=== PATIENT | female | born 1945 | race Caucasian/White ===

== ENCOUNTER 2016-09-25 08:41 | Inpatient (IN) | payer BC, OTHER ==
[~2016-09-25] VITALS: Ht 152.4 cm; Wt 67.3 kg
[~2016-09-25 08:41] MED LIST: ASPI81TA28 PO; ATOR-22 PO; CHOL100010 PO; CINN1CAP2 PO; COEN100C11 PO; ECHINACEA PO; ESTR0.3T PO; MISCTAB78 PO; OMEGCAP2 PO; POTASSIUM PO
[2016-09-25] MEDS ORDERED: METHYLPREDNISOLONE 125 MG VIAL IV STA (08:59)
[2016-09-25] MEDS ORDERED: ALBUT/IPRATROP 3MG/0.5MG NEB 3 ML VIAL INH ONE (09:00)
--- NOTE | 2016-09-25 09:04 | EMERGENCY ROOM VISIT NOTE ---
History Report prepared by Titi: Linda Person Under the Supervision of: Dr. Connor Eubanks M.D. First contact with patient: 08:50 Chief Complaint: SHORTNESS OF BREATH Stated Complaint: SHORT OF BREATH Nursing Triage Summary: Triage note: pt reports she has been short of breath x 1 month and has seen her dr three times. pt reports hx of asthma. pt reports she cough sometimes with clear sputum. History of Present Illness The patient is a 70 year old female who presents to the Emergency Room with complaints of worsening shortness of breath over the past month. She has some chest discomfort when she takes a deep breath. She also complains of a productive cough with clear sputum. The patient was diagnosed with bronchitis and has been on 2 rounds of steroids without resolution of her symptoms. She has not been on any antibiotics. The patient has been using nebulizer treatments about every 4 hours and uses an inhaler in between. She has a history of mild asthma and seldom used her inhaler prior to a month ago. Denies leg swelling or pain or other complaints. No personal history of heart problems or blood clots. She had a flu shot in the past year. Source of History: patient Onset: a month ago Position: other (respiratory) Quality: other (shortness of breath) Timing: worsening Associated Symptoms: + chest pain (with deep breath), + cough (productive with clear sputum) Review of Systems See HPI for pertinent positives & negatives. A total of 10 systems reviewed and were otherwise negative. Past Medical & Surgical Medical Problems: (1) Asthma Old medical records were reviewed. Nurse's notes were reviewed and I agree with. Family History Acute myocardial infarction FH: emphysema Social History Smoking Status: Former Smoker Drug Use: none Marital Status: Occupation Status: retired Current/Historical Medications Scheduled Ascorbic Acid (Vitamin C), 500 MG PO DAILY Aspirin (Aspirin Ec), 81 MG PO Q2D Atorvastatin (Lipitor), 20 MG PO DAILY Calcium Carbonate-Vitamin D (Calcium + D3 600-200 mg-Unit), 2 TAB PO DAILY Cholecalciferol (Vitamin D3), 2 TAB PO DAILY Cinnamon (Cinnamon), 1,000 MG PO DAILY Coenzyme Q10 (Ubidecarenone) (Co Q 10), 100 MG PO DAILY Cyanocobalamin (Vitamin B-12), 1,000 MCG PO DAILY Magnesium Oxide (Magnesium), 250 MG PO DAILY Misc Natural Products (Osteo Bi-Flex Triple Stre), 2 TABS PO DAILY Potassium (Potassium), 99 MG PO DAILY Allergies Coded Allergies: Adhesives (Verified Allergy, Unknown, REDNESS TO SOME BANDAIDS-LATEX FREE BANDAIDS [place], 09/25/16) Erythromycin (Verified Allergy, Unknown, HIVES, 09/25/16) Sulfa Antibiotics (Verified Allergy, Unknown, SWELLING, 09/25/16) Physical Exam Vital Signs Date Time Temp Pulse Resp B/P Pulse Ox O2 Delivery O2 Flow Rate FiO2 09/25/16 13:39 118 20 150/72 93 Nasal Cannula 4.0 09/25/16 12:30 113 22 131/70 93 Nasal Cannula 4.0 09/25/16 12:21 112 09/25/16 10:46 121 24 140/71 93 Room Air 09/25/16 10:05 109 20 155/72 97 Nebulizer 7.0 09/25/16 09:33 112 30 175/86 98 Nebulizer 7.0 09/25/16 09:19 103 20 96 Nasal Cannula 3.0 09/25/16 08:58 109 09/25/16 08:55 93 Nasal Cannula 4.0 09/25/16 08:55 82 Room Air 09/25/16 08:45 36.8 107 26 189/102 88 Room Air Physical Exam General: Moderately ill appearing older female who is tachypneic but speaking full sentences. HEENT: Normal cephalic atraumatic. Pupils are equal round and reactive to light. Extraocular movements are intact. Oropharynx is pink with moist mucous membranes. No swelling of the mouth lips or tongue. Neck: Supple with a midline trachea. No meningeal signs or stiffness, no JVD or bruits. No Stridor. Chest: Wheezing to auscultation bilaterally. No rhonchi. Mild to moderate increased work of breathing. Heart: Tachycardic rate and regular rhythm. Abdomen: Soft nontender, nondistended without rebound guarding or rigidity. Extremities: No cyanosis clubbing or edema. No calf tenderness or assymetry Spine/Back. Non tender to palpation. No CVA tenderness Skin: Good turgor without rashes. Neurologic exam: Cranial nerves two through 12 are intact. Motor and sensation are intact and symmetrical throughout. Medical Decision & Procedures ER Provider Diagnostic Interpretation: Radiology results as stated below per my review and radiologist interpretation: CHEST ONE VIEW PORTABLE CLINICAL HISTORY: CHEST PAIN dyspnea COMPARISON STUDY: 04/27/2016 FINDINGS: The bones soft tissues and hemidiaphragms are normal. The cardiomediastinal silhouette is normal. The lungs are clear. The pulmonary vasculature is normal. IMPRESSION: Negative chest. Electronically signed by: Frank Rocha M.D. 09/25/2016 9:30 AM Dictated Date/Time: 09/25/2016 9:[address] ANGIOGRAPHY OF THE CHEST, PULMONARY EMBOLUS PROTOCOL CLINICAL HISTORY: Cough and shortness of breath. COMPARISON STUDY: Chest radiograph September 25, 2016 and April 27, 2016. TECHNIQUE: Following IV administration of 101 mL of Optiray-320, helical axial images of the chest were obtained utilizing the pulmonary embolus protocol. Maximal intensity projections and sagittal and coronal reformats were viewed on an independent 3D workstation. IV contrast was administered without complication. CT DOSE: 396.53 mGy.cm FINDINGS: No pulmonary emboli are identified. There is no evidence of thoracic aortic dissection. The size of the heart is normal. There is no pericardial effusion. There is a small hiatal hernia. No pneumothorax or pleural effusion is present. There is mild emphysema. There is multifocal mucus plugging or mucoid impaction. There is mild diffuse bronchial wall thickening and mild bronchiectasis. No consolidation is identified. Bony thorax and upper abdomen are unremarkable. IMPRESSION: 1. No pulmonary emboli identified. 2. Multifocal mucus plugging and bronchial wall thickening throughout the lungs. No consolidation. 3. Mild emphysema. Electronically signed by: Wily Finnegan M.D. 09/25/2016 12:05 PM Dictated Date/Time: 09/25/2016 11:59 AM Laboratory Results 09/25/16 09:00 Red Blood Count 4.90, Mean Corpuscular Volume 97.1, Mean Corpuscular Hemoglobin 31.8, Mean Corpuscular Hemoglobin Concent 32.8, Mean Platelet Volume 9.7, Neutrophils (%) (Auto) 49.5, Lymphocytes (%) (Auto) 30.2, Monocytes (%) (Auto) 7.7, Eosinophils (%) (Auto) 11.4, Basophils (%) (Auto) 1.2, Neutrophils # (Auto ) 3.27, Lymphocytes # (Auto) 1.99, Monocytes # (Auto) 0.51, Eosinophils # (Auto ) 0.75, Basophils # (Auto) 0.08 09/25/16 09:00 Test 09/25/16 08:58 09/25/16 09:00 09/25/16 09:07 09/25/16 09:09 Influenza Type A (RT-PCR) Neg for Influ A (NEG) Influenza Type B (RT-PCR) Neg for Influ B (NEG) White Blood Count 6.60 K/uL (4.8-10.8) Red Blood Count 4.90 M/uL (4.2-5.4) Hemoglobin 15.6 g/dL (12.0-16.0) Hematocrit 47.6 % (37-47) Mean Corpuscular Volume 97.1 fL (80-100) Mean Corpuscular Hemoglobin 31.8 pg (25-34) Mean Corpuscular Hemoglobin Concent 32.8 g/dl (32-36) Platelet Count 191 K/uL (130-400) Mean Platelet Volume 9.7 fL (7.4-10.4) Neutrophils (%) (Auto) 49.5 % Lymphocytes (%) (Auto) 30.2 % Monocytes (%) (Auto) 7.7 % Eosinophils (%) (Auto) 11.4 % Basophils (%) (Auto) 1.2 % Neutrophils # (Auto) 3.27 K/uL (1.4-6.5) Lymphocytes # (Auto) 1.99 K/uL (1.2-3.4) Monocytes # (Auto) 0.51 K/uL (0.11-0.59) Eosinophils # (Auto) 0.75 K/uL (0-0.5) Basophils # (Auto) 0.08 K/uL (0-0.2) RDW Standard Deviation 46.8 fL (36.4-46.3) RDW Coefficient of Variation 13.2 % (11.5-14.5) Immature Granulocyte % (Auto) 0.0 % Immature Granulocyte # (Auto) 0.00 K/uL (0.00-0.02) Prothrombin Time 10.4 SECONDS (9.0-12.0) Prothromb Time International Ratio 1.0 (0.9-1.1) Activated Partial Thromboplast Time 28.1 SECONDS (21.0-31.0) Partial Thromboplastin Ratio 1.1 Anion Gap 12.0 mmol/L (3-11) Est Creatinine Clear Calc Drug Dose 56.2 ml/min Estimated GFR () 85.3 Estimated GFR (Non- 73.6 BUN/Creatinine Ratio 10.5 (10-20) Calcium Level 9.5 mg/dl (8.5-10.1) Total Bilirubin 0.7 mg/dl (0.2-1) Direct Bilirubin 0.2 mg/dl (0-0.2) Aspartate Amino Transf (AST/SGOT) 24 U/L (15-37) Alanine Aminotransferase (ALT/SGPT) 33 U/L (12-78) Alkaline Phosphatase 67 U/L (45-117) Total Creatine Kinase 276 U/L (26-192) Creatine Kinase MB 5.8 ng/ml (0.5-3.6) Creatine Kinase MB Ratio 2.1 (0-3.0) Total Protein 7.8 gm/dl (6.4-8.2) Albumin 4.1 gm/dl (3.4-5.0) Lipase 164 U/L (73-393) Bedside D-Dimer > 450 ng/mlFEU (0-450) Bedside Troponin I 0.020 ng/ml (0-0.045) PM-Ocn-C-Type Natriuretic Peptide 263 pg/ml (0-900) Bedside Lactic Acid Venous 1.50 mmol/L (0.90-1.70) Laboratory studies as stated above per my review. Medications Administered Medications (Trade) Dose Ordered Sig/Morgan Route Start Time Stop Time Status Last Admin Dose Admin Methylprednisolone Sodium Succinate (Solu-Medrol IV) 125 mg NOW STAT IV 09/25/16 08:59 09/25/16 09:02 DC 09/25/16 09:31 125 MG Albuterol/ Ipratropium (Duoneb) 12 ml ONE ONCE INH 09/25/16 09:00 09/25/16 09:02 DC 09/25/16 09:19 12 ML ECG Indication: SOB/dyspnea Rate (beats per minute): 102 Rhythm: sinus tachycardia Findings: PAC, no acute ischemic change Comparison ECG Date: 03/21/14 Change: no significant change ED Course 0850: Past medical records reviewed. The patient was evaluated in room B12, and a complete history and physical examination were performed. 0859: Ordered Solu-Medrol 125 mg IV, DuoNeb 12 ml INH. 0915: I reassessed the patient. She was doing much better and was much less tachypneic. She is on nebs at present. 0950: Upon reevaluation, the patient is feeling better. I discussed the results and treatment plan with the patient. She verbalized agreement of the treatment plan. The patient will be evaluated for further management. 1004: I discussed the case with Dr. Malik PIERRE Hospitalist. The patient will be evaluated for further management. 1121: I reassessed the patient. She looks much better and will get a CT scan. 1319: I reassessed the patient and updated her on CT results. Medical Decision Differentials include infection, reactive airway disease, cardiac disease, PE, electrolyte or metabolic abnormality. This patient comes in short of breath. This is been going on for about a month off-and-on. She appears to be fairly tachypneic off of oxygen and her O2 sat is in the low 80s. I put her on oxygen lower talk and he came up into the mid 90s and she feels better she does have wheezes bilaterally. IV access established, EKG was obtained, chest x-ray, multiple blood tests was obtained including blood cultures and lactic acid. Influenza PCR was also ordered. Her EKG does not suggest acute coronary syndrome or significant arrhythmia. She was given a 1 hour-long albuterol/Atrovent neb. She was given Solu-Medrol 125 mg IV and kept on oxygen. She is feeling much better. Her d-dimer was mildly elevated I did do chest CT there is no evidence of PE. There is nothing to suggest acute coronary syndrome. She be will be admitted due to her hypoxemia and her reactive airway disease. Consults Time Called: [phone] Consulting Physician: Dr. Malik PIERRE Hospitalist Returned Call: [phone] I discussed the case with him. The patient will be evaluated for further management. Impression Primary Impression: Hypoxemia Additional Impressions: Shortness of breath Reactive airway disease Scribe Attestation The scribe's documentation has been prepared under my direction and personally reviewed by me in its entirety. I confirm that the note above accurately reflects all work, treatment, procedures, and medical decision making performed by me. Departure Information Dispostion Being Evaluated By Hospitalist Xiang Paniagua M.D. (PCP) Patient Instructions [facility] Problem Qualifiers
[2016-09-25 09:19] VITALS: PULSE 103; O2SAT 96
[2016-09-25] MEDS ORDERED: ASCO500T3 PO (09:21)
[2016-09-25] MEDS ORDERED: CHOL1000 PO (09:21)
[2016-09-25] MEDS ORDERED: ATOR-22 PO (09:21)
[2016-09-25] MEDS ORDERED: POTA99TA PO (09:21)
[2016-09-25] MEDS ORDERED: CYAN10005 PO (09:21)
[2016-09-25] MEDS ORDERED: CALC-388 PO (09:21)
[2016-09-25] MEDS ORDERED: COEN1CAP17 PO (09:21)
[2016-09-25] MEDS ORDERED: MISCTAB88 PO (09:21)
[2016-09-25] MEDS ORDERED: ASPI81TA28 PO (09:21)
[2016-09-25] MEDS ORDERED: MAGN250T22 PO (09:21)
[2016-09-25] MEDS ORDERED: CINN500T PO (09:21)
[2016-09-25 09:24] LABS: BASO % 1.2 %; BASO ABS # 0.08 K/uL (0-0.2); COMPLETE YES; EOS % 11.4 %; HEMATOCRIT 47.6 % (37-47); LYMPH % 30.2 %; LYMPH ABS # 1.99 K/uL (1.2-3.4); MEAN CELL VOLUME 97.1 fL (80-100); MEAN CORPUSCULAR HEMOGLOBIN 31.8 pg (25-34); MEAN CORPUSCULAR HGB CONC 32.8 g/dl (32-36); MEAN PLATELET VOLUME 9.7 fL (7.4-10.4); MONO % 7.7 %; NEUT % 49.5 %; PLATELET COUNT 191 K/uL (130-400)
[2016-09-25 09:31] LABS: POINT OF CARE PRO-BNP 263 pg/ml (0-900)
--- NOTE | 2016-09-25 09:31 | DIAGNOSTIC IMAGING REPORT ---
CHEST ONE VIEW PORTABLE CLINICAL HISTORY: CHEST PAIN dyspnea COMPARISON STUDY: 04/27/2016 FINDINGS: The bones soft tissues and hemidiaphragms are normal. The cardiomediastinal silhouette is normal. The lungs are clear. The pulmonary vasculature is normal. IMPRESSION: Negative chest. Electronically signed by: Frank Rocha M.D. 09/25/2016 9:30 AM Dictated Date/Time: 09/25/2016 9:30 AM
[2016-09-25 09:32] LABS: PARTIAL THROMBOPLASTIN RATIO 1.1; PROTHROMBIN TIME (PATIENT) 10.4 SECONDS (9.0-12.0)
[2016-09-25 09:45] LABS: CKMB/CK RATIO 2.1 (0-3.0)
[2016-09-25 10:30] LABS: BUN/CREATININE RATIO 10.5 (10-20); CALCIUM 9.5 mg/dl (8.5-10.1); CREATININE 0.81 mg/dl (0.60-1.20); POTASSIUM 4.1 mmol/L (3.5-5.1)
[2016-09-25 11:00] LABS: INFLUENZA A PCR Neg for Influ A (NEG); INFLUENZA B PCR Neg for Influ B (NEG)
[2016-09-25] MEDS ORDERED: OPTIRAY 320 IV PRN (12:00)
--- NOTE | 2016-09-25 12:07 | DIAGNOSTIC IMAGING REPORT ---
CT ANGIOGRAPHY OF THE CHEST, PULMONARY EMBOLUS PROTOCOL CLINICAL HISTORY: Cough and shortness of breath. COMPARISON STUDY: Chest radiograph September 25, 2016 and April 27, 2016. TECHNIQUE: Following IV administration of 101 mL of Optiray-320, helical axial images of the chest were obtained utilizing the pulmonary embolus protocol. Maximal intensity projections and sagittal and coronal reformats were viewed on an independent 3D workstation. IV contrast was administered without complication. CT DOSE: 396.53 mGy.cm FINDINGS: No pulmonary emboli are identified. There is no evidence of thoracic aortic dissection. The size of the heart is normal. There is no pericardial effusion. There is a small hiatal hernia. No pneumothorax or pleural effusion is present. There is mild emphysema. There is multifocal mucus plugging or mucoid impaction. There is mild diffuse bronchial wall thickening and mild bronchiectasis. No consolidation is identified. Bony thorax and upper abdomen are unremarkable. IMPRESSION: 1. No pulmonary emboli identified. 2. Multifocal mucus plugging and bronchial wall thickening throughout the lungs. No consolidation. 3. Mild emphysema. Electronically signed by: Wily Finnegan M.D. 09/25/2016 12:05 PM Dictated Date/Time: 09/25/2016 11:59 AM
--- NOTE | 2016-09-25 14:56 | History and Physical ---
History & Physical Date & Time of Service: Sep 25, 2016 at 14:46 Chief Complaint: Short Of Breath Primary Care Physician: Xiang Mitcehll M.D. History of Present Illness Source: patient Pt is 70 yr old woman with a PMH significant for HLD admitted for eval .of worsening HUTSON, wheezing and dry cough. Symptoms started about 4 to 5 weeks ago. Pt was seen at [facility] by and started on Inhalers and steroids. Since her symptoms persisted she was seen by her PCP about 2 weeks ago and started on Nebs and oral steroids. Since her symptoms did not improve the pt came to ER for further eval. Pt was given oxygen, nebs, IV solumedrol and since her SOB persisted the pt was admitted for obs. Pt has no prior hx of B.asthma, COPD, Pul.fibrosis. She denies any cardiac hx in the past. Past Medical/Surgical History Medical Problems: (1) Asthma Status: Chronic Family History Acute myocardial infarction FH: emphysema Social History Smoking Status: Former Smoker Drug Use: none Marital Status: Occupational Status: retired Multi-Drug Resistant Organisms History of MDRO: No Allergies Coded Allergies: Adhesives (Verified Allergy, Unknown, REDNESS TO SOME BANDAIDS-LATEX FREE BANDAIDS [place], 09/25/16) Erythromycin (Verified Allergy, Unknown, HIVES, 09/25/16) Sulfa Antibiotics (Verified Allergy, Unknown, SWELLING, 09/25/16) Home Medications Scheduled Ascorbic Acid (Vitamin C), 500 MG PO DAILY Aspirin (Aspirin Ec), 81 MG PO Q2D Atorvastatin (Lipitor), 20 MG PO DAILY Calcium Carbonate-Vitamin D (Calcium + D3 600-200 mg-Unit), 2 TAB PO DAILY Cholecalciferol (Vitamin D3), 2 TAB PO DAILY Cinnamon (Cinnamon), 1,000 MG PO DAILY Coenzyme Q10 (Ubidecarenone) (Co Q 10), 100 MG PO DAILY Cyanocobalamin (Vitamin B-12), 1,000 MCG PO DAILY Magnesium Oxide (Magnesium), 250 MG PO DAILY Misc Natural Products (Osteo Bi-Flex Triple Stre), 2 TABS PO DAILY Potassium (Potassium), 99 MG PO DAILY Review of Systems Constitutional: No chills, No fatigue, No fever, No problem reported, No sweats , No weakness, No weight loss Eyes: No diplopia, No discharge, No eye pain, No problem reported, No redness, No worsening of vision ENT: No dental problems, No hearing loss, No nasal symptoms, No problem reported, No sore throat, No tinnitus, No trouble swallowing, No unusual epistaxis Respiratory: + cough, + dyspnea on exertion, + wheezing Cardiovascular: No PND, No chest pain, No claudication, No edema, No orthopnea , No palpitations, No problem reported Abdomen: No GI bleeding, No constipation, No diarrhea, No nausea, No pain, No problem reported, No vomiting Musculoskeletal: No calf pain, No joint pain, No muscle pain, No problem reported, No swelling Genitourinary - Female: No dysmenorrhea, No dysuria, No hematuria, No menorrhagia, No metrorrhagia, No , No problem reported, No rash, No urinary frequency, No urinary incontinence, No urinary retention, No urinary urgency, No vaginal bleeding, No vaginal discharge, No vaginal itching, No vulvodynia Neurologic: No balance problems, No memory loss, No numbness/tingling, No paralysis, No problem reported, No vertigo, No weakness Psychiatric: No anhedonism, No anxiety, No depression symptoms, No insomnia, No problem reported, No substance abuse Endocrine: No excessive thirst, No excessive urination, No fatigue, No problem reported Integumentary: No bleeding, No color change, No itch, No new/changing skin lesions, No problem reported, No rash Allergic / Immunologic: No environmental allergies, No food allergies, No frequent infections, No hives, No pet sensitivities, No poor healing, No problem reported, No prolonged convalescence, No seasonal allergies Physical Exam Vital Signs Date Time Temp Pulse Resp B/P Pulse Ox O2 Delivery O2 Flow Rate FiO2 09/25/16 13:39 118 20 150/72 93 Nasal Cannula 4.0 09/25/16 12:30 113 22 131/70 93 Nasal Cannula 4.0 09/25/16 12:21 112 09/25/16 10:46 121 24 140/71 93 Room Air 09/25/16 10:05 109 20 155/72 97 Nebulizer 7.0 09/25/16 09:33 112 30 175/86 98 Nebulizer 7.0 09/25/16 09:19 103 20 96 Nasal Cannula 3.0 09/25/16 08:58 109 09/25/16 08:55 93 Nasal Cannula 4.0 09/25/16 08:55 82 Room Air 09/25/16 08:45 36.8 107 26 189/102 88 Room Air General Appearance: WD/WN, no apparent distress Head: normocephalic, atraumatic Eyes: normal inspection, PERRL, EOMI ENT: normal ENT inspection, hearing grossly normal, TMs normal, pharynx normal Neck: supple, no adenopathy, thyroid normal, no JVD Respiratory/Chest: chest non-tender, no respiratory distress, + wheezing Cardiovascular: no gallop, no JVD, no murmur, normal peripheral pulses, + tachycardia Abdomen/GI: normal bowel sounds, non tender, soft Back: normal inspection, no CVA tenderness, no muscle spasm, normal range of motion Extremities/Musculoskelatal: normal inspection, no calf tenderness, normal capillary refill, no pedal edema 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, no motor/sensory deficits, alert, oriented x 3 Skin: normal color Diagnostics Laboratory Results Results Past 24 Hours Test 09/25/16 08:58 09/25/16 09:00 09/25/16 09:07 09/25/16 09:09 Range/Units Influenza Type A (RT-PCR) Neg for Influ A NEG Influenza Type B (RT-PCR) Neg for Influ B NEG White Blood Count 6.60 4.8-10.8 K/uL Red Blood Count 4.90 4.2-5.4 M/uL Hemoglobin 15.6 12.0-16.0 g/dL Hematocrit 47.6 37-47 % Mean Corpuscular Volume 97.1 80-100 fL Mean Corpuscular Hemoglobin 31.8 25-34 pg Mean Corpuscular Hemoglobin Concent 32.8 32-36 g/dl Platelet Count 191 130-400 K/uL Mean Platelet Volume 9.7 7.4-10.4 fL Neutrophils (%) (Auto) 49.5 % Lymphocytes (%) (Auto) 30.2 % Monocytes (%) (Auto) 7.7 % Eosinophils (%) (Auto) 11.4 % Basophils (%) (Auto) 1.2 % Neutrophils # (Auto) 3.27 1.4-6.5 K/uL Lymphocytes # (Auto) 1.99 1.2-3.4 K/uL Monocytes # (Auto) 0.51 0.11-0.59 K/uL Eosinophils # (Auto) 0.75 0-0.5 K/uL Basophils # (Auto) 0.08 0-0.2 K/uL RDW Standard Deviation 46.8 36.4-46.3 fL RDW Coefficient of Variation 13.2 11.5-14.5 % Immature Granulocyte % (Auto) 0.0 % Immature Granulocyte # (Auto) 0.00 0.00-0.02 K/uL Prothrombin Time 10.4 9.0-12.0 SECONDS Prothromb Time International Ratio 1.0 0.9-1.1 Activated Partial Thromboplast Time 28.1 21.0-31.0 SECONDS Partial Thromboplastin Ratio 1.1 Sodium Level 145 136-145 mmol/L Potassium Level 4.1 3.5-5.1 mmol/L Chloride Level 110 98-107 mmol/L Carbon Dioxide Level 23 21-32 mmol/L Anion Gap 12.0 3-11 mmol/L Blood Urea Nitrogen 9 7-18 mg/dl Creatinine 0.81 0.60-1.20 mg/dl Est Creatinine Clear Calc Drug Dose 56.2 ml/min Estimated GFR () 85.3 Estimated GFR (Non- 73.6 BUN/Creatinine Ratio 10.5 10-20 Random Glucose 123 70-99 mg/dl Calcium Level 9.5 8.5-10.1 mg/dl Total Bilirubin 0.7 0.2-1 mg/dl Direct Bilirubin 0.2 0-0.2 mg/dl Aspartate Amino Transf (AST/SGOT) 24 15-37 U/L Alanine Aminotransferase (ALT/SGPT) 33 12-78 U/L Alkaline Phosphatase 67 45-117 U/L Total Creatine Kinase 276 26-192 U/L Creatine Kinase MB 5.8 0.5-3.6 ng/ml Creatine Kinase MB Ratio 2.1 0-3.0 Total Protein 7.8 6.4-8.2 gm/dl Albumin 4.1 3.4-5.0 gm/dl Lipase 164 73-393 U/L Bedside D-Dimer > 450 0-450 ng/mlFEU Bedside Troponin I 0.020 0-0.045 ng/ml PT-Hwa-K-Type Natriuretic Peptide 263 0-900 pg/ml Bedside Lactic Acid Venous 1.50 0.90-1.70 mmol/L Microbiology Results 09/25/16 Blood Culture, Received Pending 09/25/16 Blood Culture, Received Pending Diagnostic Radiology [~ rep ct add3]] CT ANGIOGRAPHY OF THE CHEST, PULMONARY EMBOLUS PROTOCOL CLINICAL HISTORY: Cough and shortness of breath. COMPARISON STUDY: Chest radiograph September 25, 2016 and April 27, 2016. TECHNIQUE: Following IV administration of 101 mL of Optiray-320, helical axial images of the chest were obtained utilizing the pulmonary embolus protocol. Maximal intensity projections and sagittal and coronal reformats were viewed on an independent 3D workstation. IV contrast was administered without complication. CT DOSE: 396.53 mGy.cm FINDINGS: No pulmonary emboli are identified. There is no evidence of thoracic aortic dissection. The size of the heart is normal. There is no pericardial effusion. There is a small hiatal hernia. No pneumothorax or pleural effusion is present. There is mild emphysema. There is multifocal mucus plugging or mucoid impaction. There is mild diffuse bronchial wall thickening and mild bronchiectasis. No consolidation is identified. Bony thorax and upper abdomen are unremarkable. IMPRESSION: 1. No pulmonary emboli identified. 2. Multifocal mucus plugging and bronchial wall thickening throughout the lungs. No consolidation. 3. Mild emphysema. Electronically signed by: Wily Finngean M.D. 09/25/2016 12:05 PM other (Sinus tachycardia with PACs) Impression Assessment and Plan (1) Hyperlipidemia Assessment & Plan: Continue lipitor (2) Shortness of breath Assessment & Plan: Likely secondary to acute on chr.bronchitis. Pt is an ex smoker. Will treat with oxygen, nebs, steroids. oxygen 2 lits via [place] to keep sats greater than ninety two percent
[2016-09-25] MEDS ORDERED: LEVOFLOXACIN 250 MG TAB PO STA (15:10)
[2016-09-25] MEDS ORDERED: IV FLUIDS COMPLETED PRN (15:30)
[2016-09-25 18:33] VITALS: BP 179/79; PULSE 104; TEMP 36.4; Ht 152.4 cm; Wt 67.3 kg
[2016-09-25 18:59] VITALS: PULSE 113; O2SAT 93
[2016-09-25] MEDS: IPRATROPIUM BROMIDE NEB SOLN 0.02% 2.5 ML VIAL INH SCH (18:59)
[2016-09-25] MEDS: METHYLPREDNISOLONE IV 60 MG in SYRINGE 0 ML IV SCH (19:13)
[2016-09-25 19:18] VITALS: BP 151/83; PULSE 116; TEMP 36.8; O2SAT 91
[2016-09-25 23:24] VITALS: BP 153/78; PULSE 111; TEMP 36.7; O2SAT 93
[2016-09-26] VITALS (10 sets, daily range): BP systolic 132–173; BP diastolic 70–97; PULSE 86–127; TEMP 36.5–36.7; O2SAT 91–95
[2016-09-26] MEDS ORDERED: NURSING VERBAL MED ORDER ONE ×3 (01:30→08:00)
[2016-09-26] MEDS: IPRATROPIUM BROMIDE NEB SOLN 0.02% 2.5 ML VIAL INH SCH ×4 (01:45→17:56)
[2016-09-26] MEDS: METHYLPREDNISOLONE IV 60 MG in SYRINGE 0 ML IV SCH ×3 (02:05→17:24)
[2016-09-26] MEDS ORDERED: COUGH DROP (SUGAR FREE) LOZ 24 LOZ/1 BOX PO PRN (02:45)
[2016-09-26] MEDS ORDERED: LORAZEPAM 0.5 MG TAB PO ONE (02:45)
[2016-09-26] MEDS: GUAIFENESIN 600 MG TABCR PO SCH ×2 (08:59→21:16)
--- NOTE | 2016-09-26 10:05 | Hospitalist Progress Note ---
Hospitalist Progress Note Date of Service Sep 26, 2016. Subjective Pt evaluation today including: conversation w/ patient, physical exam, lab review, review of studies Voiding: no voiding problems Respiratory: + cough, + dyspnea at rest, + wheezing Cardiovascular: No PND, No chest pain, No claudication, No edema, No orthopnea, No palpitations, No problem reported, No see HPI Abdomen: No GI bleeding, No constipation, No diarrhea, No nausea, No pain, No problem reported, No see HPI, No vomiting Neurologic: No balance problems, No memory loss, No numbness/tingling, No paralysis, No problem reported, No see HPI, No vertigo, No weakness Medications Medications (Trade) Dose Ordered Sig/Morgan Route Start Time Stop Time Status Last Admin Dose Admin Methylprednisolone Sodium Succinate/ Syringe (Solu-Medrol IV/ Syringe) 0.96 ml @ 1.5 mls/min Q8H IV 09/25/16 18:00 10/25/16 17:59 09/26/16 02:05 1.5 MLS/MIN Ipratropium Jay (Atrovent 0.02% 0.5MG/2.5ML Neb) 0.5 mg Q6R INH 09/25/16 21:00 10/25/16 20:59 09/26/16 07:37 0.5 MG Levofloxacin (Levaquin Tab) 750 mg ONE STAT PO 09/25/16 15:10 09/25/16 15:11 DC 09/25/16 16:41 750 MG Menthol (Nice Sukh) 1 sukh PRN PRN PO 09/26/16 02:45 10/26/16 02:44 09/26/16 03:06 1 SUKH Guaifenesin (Mucinex Contr Rel Tab) 600 mg BID PO 09/26/16 09:00 10/26/16 08:59 09/26/16 08:59 600 MG Objective Vital Signs Date Time Temp Pulse Resp B/P Pulse Ox O2 Delivery O2 Flow Rate FiO2 09/26/16 09:55 116 132/70 09/26/16 08:14 36.5 127 24 170/97 91 Nasal Cannula 3.0 09/26/16 07:37 111 20 93 Nasal Cannula 3.0 09/26/16 04:24 36.7 110 20 159/82 92 Nasal Cannula 2.0 09/26/16 04:00 Nasal Cannula 3.0 09/26/16 02:15 101 20 93 Nasal Cannula 2.0 09/26/16 00:00 Nasal Cannula 3.0 09/25/16 23:24 36.7 111 20 153/78 93 Nasal Cannula 3.0 09/25/16 20:00 Nasal Cannula 2.0 09/25/16 19:18 36.8 116 16 151/83 91 Nasal Cannula 2.0 09/25/16 18:59 113 18 93 Nasal Cannula 2.0 09/25/16 18:33 36.4 104 20 179/79 Room Air 09/25/16 16:26 94 Nasal Cannula 3.0 09/25/16 16:00 111 23 149/68 94 09/25/16 15:30 109 24 143/64 93 09/25/16 15:00 119 23 91 09/25/16 13:39 118 20 150/72 93 Nasal Cannula 4.0 09/25/16 12:30 113 22 131/70 93 Nasal Cannula 4.0 09/25/16 12:21 112 09/25/16 10:46 121 24 140/71 93 Room Air 09/25/16 10:05 109 20 155/72 97 Nebulizer 7.0 Physical Exam General Appearance: WD/WN, no apparent distress Eyes: normal inspection, PERRL, EOMI ENT: normal ENT inspection Neck: supple, no adenopathy Respiratory/Chest: chest non-tender, no accessory muscle use, + decreased breath sounds, + wheezing Cardiovascular: regular rate, rhythm, no edema, no gallop, no JVD Abdomen: normal bowel sounds, non tender, soft, no organomegaly Extremities: normal range of motion, non-tender 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, oriented x 3 Skin: normal color Laboratory Results 09/25/16 09:00 Red Blood Count 4.90, Mean Corpuscular Volume 97.1, Mean Corpuscular Hemoglobin 31.8, Mean Corpuscular Hemoglobin Concent 32.8, Mean Platelet Volume 9.7, Neutrophils (%) (Auto) 49.5, Lymphocytes (%) (Auto) 30.2, Monocytes (%) (Auto) 7.7, Eosinophils (%) (Auto) 11.4, Basophils (%) (Auto) 1.2, Neutrophils # (Auto ) 3.27, Lymphocytes # (Auto) 1.99, Monocytes # (Auto) 0.51, Eosinophils # (Auto ) 0.75, Basophils # (Auto) 0.08 09/25/16 09:00 Test 09/25/16 08:58 09/25/16 09:00 09/25/16 09:07 09/25/16 09:09 Influenza Type A (RT-PCR) Neg for Influ A (NEG) Influenza Type B (RT-PCR) Neg for Influ B (NEG) White Blood Count 6.60 K/uL (4.8-10.8) Red Blood Count 4.90 M/uL (4.2-5.4) Hemoglobin 15.6 g/dL (12.0-16.0) Hematocrit 47.6 % (37-47) Mean Corpuscular Volume 97.1 fL (80-100) Mean Corpuscular Hemoglobin 31.8 pg (25-34) Mean Corpuscular Hemoglobin Concent 32.8 g/dl (32-36) Platelet Count 191 K/uL (130-400) Mean Platelet Volume 9.7 fL (7.4-10.4) Neutrophils (%) (Auto) 49.5 % Lymphocytes (%) (Auto) 30.2 % Monocytes (%) (Auto) 7.7 % Eosinophils (%) (Auto) 11.4 % Basophils (%) (Auto) 1.2 % Neutrophils # (Auto) 3.27 K/uL (1.4-6.5) Lymphocytes # (Auto) 1.99 K/uL (1.2-3.4) Monocytes # (Auto) 0.51 K/uL (0.11-0.59) Eosinophils # (Auto) 0.75 K/uL (0-0.5) Basophils # (Auto) 0.08 K/uL (0-0.2) RDW Standard Deviation 46.8 fL (36.4-46.3) RDW Coefficient of Variation 13.2 % (11.5-14.5) Immature Granulocyte % (Auto) 0.0 % Immature Granulocyte # (Auto) 0.00 K/uL (0.00-0.02) Prothrombin Time 10.4 SECONDS (9.0-12.0) Prothromb Time International Ratio 1.0 (0.9-1.1) Activated Partial Thromboplast Time 28.1 SECONDS (21.0-31.0) Partial Thromboplastin Ratio 1.1 Anion Gap 12.0 mmol/L (3-11) Est Creatinine Clear Calc Drug Dose 56.2 ml/min Estimated GFR () 85.3 Estimated GFR (Non- 73.6 BUN/Creatinine Ratio 10.5 (10-20) Calcium Level 9.5 mg/dl (8.5-10.1) Total Bilirubin 0.7 mg/dl (0.2-1) Direct Bilirubin 0.2 mg/dl (0-0.2) Aspartate Amino Transf (AST/SGOT) 24 U/L (15-37) Alanine Aminotransferase (ALT/SGPT) 33 U/L (12-78) Alkaline Phosphatase 67 U/L (45-117) Total Creatine Kinase 276 U/L (26-192) Creatine Kinase MB 5.8 ng/ml (0.5-3.6) Creatine Kinase MB Ratio 2.1 (0-3.0) Total Protein 7.8 gm/dl (6.4-8.2) Albumin 4.1 gm/dl (3.4-5.0) Lipase 164 U/L (73-393) Hepatitis C Antibody Screen NEG (NEG) Bedside D-Dimer > 450 ng/mlFEU (0-450) Bedside Troponin I 0.020 ng/ml (0-0.045) TK-Mlo-B-Type Natriuretic Peptide 263 pg/ml (0-900) Bedside Lactic Acid Venous 1.50 mmol/L (0.90-1.70) Date/Time Source Procedure Growth Status 09/25/16 09:05 Blood Blood Culture Pending Received Diagnostic Results Telemetry: Sinus tachycardia. Assessment and Plan (1) Hyperlipidemia Assessment & Plan: Continue statin (2) Shortness of breath Assessment & Plan: SOB improved. Still needing two to three lits oxygen via NC to keep sats > than 92 percent. Cont atrovent nebs (consider adding xoponex) given tachycardia. Cont IV steroids. Ambulate and check oxygen sats with and without oxygen. Pt may need home oxygen at the time of discharge. oxygen 2 lits via NC to keep sats greater than ninety two percent Problem Qualifiers (1) Hyperlipidemia: Hyperlipidemia type: other hyperlipidemia Qualified Codes: E78.4 - Other hyperlipidemia
[2016-09-26] MEDS: LEVOFLOXACIN 750 MG TAB PO SCH (10:38)
[2016-09-26] MEDS ORDERED: MAGNESIUM HYDROXIDE SUSP 30 ML UDC PO ONE (14:30)
[2016-09-27] VITALS (11 sets, daily range): BP systolic 136–182; BP diastolic 77–92; PULSE 90–111; TEMP 36.6–36.8; O2SAT 90–96
[2016-09-27] MEDS: METHYLPREDNISOLONE IV 60 MG in SYRINGE 0 ML IV SCH ×3 (01:48→17:51)
[2016-09-27] MEDS: IPRATROPIUM BROMIDE NEB SOLN 0.02% 2.5 ML VIAL INH SCH ×4 (02:40→19:14)
[2016-09-27] MEDS: GUAIFENESIN 600 MG TABCR PO SCH ×2 (07:50→20:36)
--- NOTE | 2016-09-27 09:38 | Hospitalist Progress Note ---
Hospitalist Progress Note Date of Service Sep 27, 2016. Subjective Pt evaluation today including: conversation w/ patient, physical exam, chart review Voiding: no voiding problems Respiratory: + cough, + wheezing (improved wheezing.) Cardiovascular: No PND, No chest pain, No claudication, No edema, No orthopnea, No palpitations, No problem reported, No see HPI Abdomen: No GI bleeding, No constipation, No diarrhea, No nausea, No pain, No problem reported, No see HPI, No vomiting Musculoskeletal: No calf pain, No joint pain, No muscle pain, No problem reported, No see HPI, No swelling Medications Medications (Trade) Dose Ordered Sig/Morgan Route Start Time Stop Time Status Last Admin Dose Admin Levofloxacin (Levaquin Tab) 750 mg DAILY@11 PO 09/26/16 11:00 10/02/16 10:59 09/26/16 10:38 750 MG Guaifenesin (Mucinex Contr Rel Tab) 600 mg BID PO 09/26/16 09:00 10/26/16 08:59 09/26/16 21:16 600 MG Magnesium Hydroxide (Milk Of Magnesia Susp) 30 ml 1430 ONCE PO 09/26/16 14:30 09/26/16 14:31 DC 09/26/16 15:25 30 ML Objective Vital Signs Date Time Temp Pulse Resp B/P Pulse Ox O2 Delivery O2 Flow Rate FiO2 09/27/16 07:09 110 18 95 Nasal Cannula 3.0 09/27/16 04:00 Nasal Cannula 4.0 09/27/16 03:12 36.6 94 20 143/80 93 Nasal Cannula 3.0 09/27/16 02:41 90 18 95 Nasal Cannula 3.0 09/27/16 00:00 Nasal Cannula 4.0 09/26/16 23:15 36.6 86 18 135/75 92 Nasal Cannula 3.0 09/26/16 20:00 Nasal Cannula 4.0 09/26/16 19:55 36.5 109 20 159/82 95 Nasal Cannula 3.5 172/90 09/26/16 17:57 117 20 94 Nasal Cannula 4.0 09/26/16 16:05 36.6 112 20 152/88 92 3.5 09/26/16 16:00 Nasal Cannula 4.0 09/26/16 12:43 36.6 114 20 173/78 92 Nasal Cannula 3.5 163/78 09/26/16 12:00 Nasal Cannula 4.0 09/26/16 09:55 116 132/70 09/26/16 08:14 36.5 127 24 170/97 91 Nasal Cannula 3.0 09/26/16 07:37 111 20 93 Nasal Cannula 3.0 Physical Exam General Appearance: WD/WN, no apparent distress Eyes: normal inspection, PERRL, EOMI ENT: normal ENT inspection, hearing grossly normal Neck: supple, no adenopathy, thyroid normal, no JVD Respiratory/Chest: chest non-tender, + decreased breath sounds, + wheezing Cardiovascular: regular rate, rhythm, no edema, no gallop, no JVD Abdomen: normal bowel sounds, non tender, soft Extremities: normal range of motion, non-tender 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, alert, normal mood/affect, oriented x 3 Skin: normal color Laboratory Results 09/25/16 09:00 Red Blood Count 4.90, Mean Corpuscular Volume 97.1, Mean Corpuscular Hemoglobin 31.8, Mean Corpuscular Hemoglobin Concent 32.8, Mean Platelet Volume 9.7, Neutrophils (%) (Auto) 49.5, Lymphocytes (%) (Auto) 30.2, Monocytes (%) (Auto) 7.7, Eosinophils (%) (Auto) 11.4, Basophils (%) (Auto) 1.2, Neutrophils # (Auto ) 3.27, Lymphocytes # (Auto) 1.99, Monocytes # (Auto) 0.51, Eosinophils # (Auto ) 0.75, Basophils # (Auto) 0.08 09/25/16 09:00 Test 09/25/16 08:58 09/25/16 09:00 09/25/16 09:07 09/25/16 09:09 Influenza Type A (RT-PCR) Neg for Influ A (NEG) Influenza Type B (RT-PCR) Neg for Influ B (NEG) White Blood Count 6.60 K/uL (4.8-10.8) Red Blood Count 4.90 M/uL (4.2-5.4) Hemoglobin 15.6 g/dL (12.0-16.0) Hematocrit 47.6 % (37-47) Mean Corpuscular Volume 97.1 fL (80-100) Mean Corpuscular Hemoglobin 31.8 pg (25-34) Mean Corpuscular Hemoglobin Concent 32.8 g/dl (32-36) Platelet Count 191 K/uL (130-400) Mean Platelet Volume 9.7 fL (7.4-10.4) Neutrophils (%) (Auto) 49.5 % Lymphocytes (%) (Auto) 30.2 % Monocytes (%) (Auto) 7.7 % Eosinophils (%) (Auto) 11.4 % Basophils (%) (Auto) 1.2 % Neutrophils # (Auto) 3.27 K/uL (1.4-6.5) Lymphocytes # (Auto) 1.99 K/uL (1.2-3.4) Monocytes # (Auto) 0.51 K/uL (0.11-0.59) Eosinophils # (Auto) 0.75 K/uL (0-0.5) Basophils # (Auto) 0.08 K/uL (0-0.2) RDW Standard Deviation 46.8 fL (36.4-46.3) RDW Coefficient of Variation 13.2 % (11.5-14.5) Immature Granulocyte % (Auto) 0.0 % Immature Granulocyte # (Auto) 0.00 K/uL (0.00-0.02) Prothrombin Time 10.4 SECONDS (9.0-12.0) Prothromb Time International Ratio 1.0 (0.9-1.1) Activated Partial Thromboplast Time 28.1 SECONDS (21.0-31.0) Partial Thromboplastin Ratio 1.1 Anion Gap 12.0 mmol/L (3-11) Est Creatinine Clear Calc Drug Dose 56.2 ml/min Estimated GFR () 85.3 Estimated GFR (Non- 73.6 BUN/Creatinine Ratio 10.5 (10-20) Calcium Level 9.5 mg/dl (8.5-10.1) Total Bilirubin 0.7 mg/dl (0.2-1) Direct Bilirubin 0.2 mg/dl (0-0.2) Aspartate Amino Transf (AST/SGOT) 24 U/L (15-37) Alanine Aminotransferase (ALT/SGPT) 33 U/L (12-78) Alkaline Phosphatase 67 U/L (45-117) Total Creatine Kinase 276 U/L (26-192) Creatine Kinase MB 5.8 ng/ml (0.5-3.6) Creatine Kinase MB Ratio 2.1 (0-3.0) Total Protein 7.8 gm/dl (6.4-8.2) Albumin 4.1 gm/dl (3.4-5.0) Lipase 164 U/L (73-393) Hepatitis C Antibody Screen NEG (NEG) Bedside D-Dimer > 450 ng/mlFEU (0-450) Bedside Troponin I 0.020 ng/ml (0-0.045) LC-Zgh-Z-Type Natriuretic Peptide 263 pg/ml (0-900) Bedside Lactic Acid Venous 1.50 mmol/L (0.90-1.70) Date/Time Source Procedure Growth Status 09/25/16 09:05 Blood Blood Culture Pending Received Assessment and Plan (1) Hyperlipidemia Assessment & Plan: Continue statin (2) Shortness of breath Assessment & Plan: SOB improved. Still needing two to three lits oxygen via NC to keep sats > than 92 percent. Cont atrovent nebs (consider adding xoponex) given tachycardia. Cont IV steroids. Ambulate and check oxygen sats with and without oxygen. Pt may need home oxygen at the time of discharge. OP Pulmonary follow up oxygen 2 lits via NC to keep sats greater than ninety two percent Problem Qualifiers (1) Hyperlipidemia: Hyperlipidemia type: other hyperlipidemia Qualified Codes: E78.4 - Other hyperlipidemia
[2016-09-27] MEDS: LEVOFLOXACIN 750 MG TAB PO SCH (10:27)
[2016-09-28] VITALS (16 sets, daily range): BP systolic 139–175; BP diastolic 73–90; PULSE 83–109; TEMP 36.5–36.8; O2SAT 93–95
[2016-09-28] MEDS: METHYLPREDNISOLONE IV 60 MG in SYRINGE 0 ML IV SCH ×3 (01:50→18:33)
[2016-09-28] MEDS: IPRATROPIUM BROMIDE NEB SOLN 0.02% 2.5 ML VIAL INH SCH ×4 (01:55→20:16)
[2016-09-28] MEDS: GUAIFENESIN 600 MG TABCR PO SCH ×2 (08:39→21:14)
--- NOTE | 2016-09-28 12:59 | Hospitalist Progress Note ---
Hospitalist Progress Note Date of Service Sep 28, 2016. (Linda Scott PA-C) Subjective Pt evaluation today including: conversation w/ patient, physical exam, chart review, lab review, review of studies, review of inpatient medication list Patient seen and evaluated. No acute events overnight. Patient reports that she does not use home oxygen. Patient has been using nebulizer treatments every 4 hours and increase use of inhaler in between. She states prior to this past month her asthma has been well controlled. She continues to have a cough that is predominantly nonproductive. Continues to have HUTSON and requiring 2-3 L of oxygen with saturations averaging 93%. Patient has failed multiple steroid courses without relief. CTA revealing multifocal mucus plugging and bronchial wall thickening. Will consult pulmonology for considerations for bronchoscopy or other intervention. Patient does report some mild improvement. Patient with some shortness of breath with prolonged talking and intermittent hoarse voice. Constitutional: No chills, No fever ENT: No nasal symptoms, No sore throat, No trouble swallowing Respiratory: + cough, + dyspnea on exertion, + sputum (minimal and intermittent), + wheezing Cardiovascular: No chest pain Abdomen: No constipation, No diarrhea, No nausea, No pain, No vomiting Musculoskeletal: No calf pain, No swelling Female : No dysuria (Linda Scott PA-C) Medications Current Inpatient Medications Medications (Trade) Dose Ordered Sig/Morgan Route Start Time Stop Time Status Last Admin Dose Admin Ioversol 125 ml 125 ml UD PRN IV 09/25/16 12:00 09/29/16 11:59 Methylprednisolone Sodium Succinate/ Syringe (Solu-Medrol IV/ Syringe) 0.96 ml @ 1.5 mls/min Q8H IV 09/25/16 18:00 10/25/16 17:59 09/28/16 01:50 1.5 MLS/MIN Ipratropium Downey (Atrovent 0.02% 0.5MG/2.5ML Neb) 0.5 mg Q6R INH 09/25/16 21:00 10/25/16 20:59 09/28/16 07:35 0.5 MG Levofloxacin (Levaquin Tab) 750 mg DAILY@11 PO 09/26/16 11:00 10/02/16 10:59 09/27/16 10:27 750 MG Miscellaneous (Iv Fluids Completed) 1 ea PRN PRN N/A 09/25/16 15:30 09/25/17 15:29 Menthol (Nice Ines) 1 ines PRN PRN PO 09/26/16 02:45 10/26/16 02:44 09/26/16 03:06 1 INES Lorazepam (Ativan Tab) 0.5 mg HS PRN PO 09/26/16 02:45 10/26/16 02:44 Guaifenesin (Mucinex Contr Rel Tab) 600 mg BID PO 09/26/16 09:00 10/26/16 08:59 09/28/16 08:39 600 MG (Linda Scott PA-C) Objective Vital Signs Date Time Temp Pulse Resp B/P Pulse Ox O2 Delivery O2 Flow Rate FiO2 09/28/16 11:46 36.7 92 16 158/81 93 Nasal Cannula 2.0 09/28/16 08:40 102 144/76 09/28/16 08:00 93 Nasal Cannula 2.0 09/28/16 07:50 36.5 83 16 175/79 93 Nasal Cannula 2.0 09/28/16 07:35 93 20 93 Nasal Cannula 3.0 09/28/16 05:41 36.5 105 20 149/86 93 2.0 09/28/16 04:22 93 Nasal Cannula 2.0 09/28/16 03:38 36.6 85 18 139/79 94 Nasal Cannula 2.0 Humidified Oxygen 09/28/16 01:55 88 22 93 Nasal Cannula 3.0 09/28/16 00:00 93 Nasal Cannula 2.0 09/27/16 23:16 36.6 102 20 158/83 90 Nasal Cannula 3.0 Humidified Oxygen 09/27/16 20:00 93 Nasal Cannula 2.0 09/27/16 19:16 100 14 93 Nasal Cannula 3.0 09/27/16 19:04 36.8 100 18 157/92 91 Nasal Cannula 3.0 09/27/16 15:53 36.7 94 18 147/82 94 Nasal Cannula 3.0 09/27/16 15:20 Nasal Cannula 3.5 09/27/16 14:10 109 18 94 Nasal Cannula 3.0 (Linda Scott PA-C) Physical Exam General Appearance: WD/WN, no apparent distress Eyes: sclerae normal ENT: hearing grossly normal Neck: supple, no JVD, trachea midline Respiratory/Chest: no respiratory distress, no accessory muscle use, + rhonchi (scattered throughout all lung farrell), + wheezing (scattered throughout all lung farrell) Cardiovascular: regular rate, rhythm, no gallop, no murmur Abdomen: normal bowel sounds, non tender, soft Extremities: no pedal edema, no calf tenderness Neurologic/Psychiatric: alert, oriented x 3 Skin: normal color, warm/dry (Linda Scott, PA-C) Assessment and Plan Acute Asthma Exacerbation with Hypoxia: - Methylprednisolone 60 mg IV Q8H - Levaquin 750 mg po daily - DAY #4/7 - Atrovent nebulizer - Mucinex 600 mg BID - Continue incentive spirometry and add flutter valve - Continue O2 therapy - maintain sats greater than or equal to 92% - Consult pulmonology - recommendations appreciated - need for bronchoscopy versus other intervention? DVT Prophylaxis: SCDs and Ambulation Code Status: FULL RESUSCITATION Disposition: - Pending Pulm recommendations - hopeful D/C 1-2 days with outpatient F/U Continued [facility] stay due to: multiple IV medications needed Discharge planning: home (Linda Scott, PA-C) i personally examined pt and verified all lowe points w Remigio Scott PAC feeling ongoing cough and HUTSON. R lower chest hurts with cough vitals noted, see EMR lungs diffuse coarse exp rhonchi faint wheeze b/l ost/msk - R lower ribs tender to palp - balanced ligamentous tension attempted with little to no improvement. pt did tolerate well bronchitis -suspect underlying ?mild COPD -steroids, nebs, abx -pulm input -outpt PFTs otherwise as above (Volodymyr Geiger D.O.)
[2016-09-28] MEDS: LEVOFLOXACIN 750 MG TAB PO SCH (13:36)
--- NOTE | 2016-09-28 15:21 | Pulmonary Consultation ---
History General Date of Service: Sep 28, 2016. Stated Complaint: Hypoxemia, Reactive Airway Disease, Sob HPI The patient is a 70 year old female who presents to [facility] with complaints of Hypoxemia, Reactive Airway Disease, Sob. The patient' s primary care provider is Xiang Mitchell M.D.. 7-year-old female who is had acute on chronic progressive shortness of breath. Patient notes a productive history of dyspnea on exertion over the past 3-4 years. She notes increasing dyspnea on exertion with productive cough for the last 3-4 weeks. She's been treated as an outpatient with 2 rounds of steroids with little benefit. Over that time she denied: Fever, chills, pleurisy, weight loss, cardiac chest pain or hemoptysis. She was also treated with nebulizer therapy for previous history of asthma with little benefit as well. As we are speaking she described a episode of hernia repair 1-2 years ago in which she had difficulty discharge her secondary to chronic hypoxemia. The patient is also noted chronic sinusitis for multiple decades. Work-up: 1)Sinus rhythm rate of 114 with intermittent PVCs 2)CBC: WNL 3)D-dimer: > 450 4Coags: WNL 5)Influ A&B negative 6)CXR: (09/25/2016) bronchial wall thickening 7)CTA (09/25/2016) a.Negative PE b.Diffuse bilateral bronchiectasis with mucous plugging Treatment: 1)Levofloxacin 750 mg 2)Mucinex 600 mg by mouth twice a day 3)Methylprednisolone 60 mg IV every 8 4)Ipratropium nebulizer every 6 hours Historian: patient, EMS Review of Systems Constitutional: reports: malaise Eyes: reports: no symptoms ENT: reports: no symptoms Cardiovascular: reports: no symptoms Respiratory: reports: as stated in HPI Gastrointestinal: reports: no symptoms Genitourinary - Female: reports: no symptoms Musculoskeletal: reports: no symptoms Integumentary: reports: no symptoms Neurologic: reports: no symptoms Psychiatric: reports: no symptoms Endocrine: no symptoms Hematologic / Lymphatic: no symptoms Allergic / Immunologic: no symptoms Past Medical History Past Medical History: 1.Arthritis 2.Asthma 3.Encounter for routine gynecological examination 4.Hypercholesterolemia 5.Nephrolithiasis 7.bronchitis 8.Incisional hernia 9.Nephrolithiasis Past Medical History: arthritis, asthma, high cholesterol, kidney stones, other Past Surgical History: 1. Appendectomy 2. Dilation And Curettage 3. Incisional Hernia Repair - Incarcerated 4. Total Abdominal Hysterectomy With Removal Of Both Ovaries Past Surgical History: appendectomy, hysterectomy Family History Acute myocardial infarction FH: emphysema Social History Hx Tobacco Use In Past Year?: No Smoking Status: Former Smoker (smoker 25 years pack per day quit 30 years prior ) Alcohol: socially Drug Use: none Marital status: Housing status: lives with family Occupational Status: retired History of MDRO History of MDRO: No Allergies Coded Allergies: Adhesives (Verified Allergy, Unknown, REDNESS TO SOME BANDAIDS-LATEX FREE BANDAIDS [place], 09/25/16) Erythromycin (Verified Allergy, Unknown, HIVES, 09/25/16) Sulfa Antibiotics (Verified Allergy, Unknown, SWELLING, 09/25/16) Current Medications Reported Home Medications Medications Dose Route/Sig Max Daily Dose Days Date Category Vitamin C (Ascorbic Acid) 500 Mg Tab 500 Mg PO DAILY 09/25/16 Reported Cinnamon 500 Mg Tab 1,000 Mg PO DAILY 09/25/16 Reported Vitamin D3 (Cholecalciferol) 1,000 Unit Tab 2 Tab PO DAILY 09/25/16 Reported Magnesium (Magnesium Oxide) 250 Mg Tab 250 Mg PO DAILY 09/25/16 Reported Co Q 10 (Coenzyme Q10 (Ubidecarenone)) 100 Mg Cap 100 Mg PO DAILY 09/25/16 Reported Potassium 99 Mg Tab 99 Mg PO DAILY 09/25/16 Reported Osteo Bi-Flex Triple Stre (Misc Natural Products) 1 Tab Tab 2 Tabs PO DAILY 09/25/16 Reported Aspirin Ec (Aspirin) 81 Mg Tab 81 Mg PO Q2D 09/25/16 Reported Calcium + D3 600-200 mg-Unit (Calcium Carbonate-Vitamin D) 1 Tab Tab 2 Tab PO DAILY 09/25/16 Reported Lipitor (Atorvastatin Calcium) 20 Mg Tab 20 Mg PO DAILY 09/25/16 Reported Vitamin B-12 (Cyanocobalamin) 1,000 Mcg Tab 1,000 Mcg PO DAILY 09/25/16 Reported Physical Physical Exam Vital Signs: Date Time Temp Pulse Resp B/P Pulse Ox O2 Delivery O2 Flow Rate FiO2 09/28/16 14:13 100 20 94 Nasal Cannula 4.0 09/28/16 12:00 Nasal Cannula 2.0 09/28/16 11:46 36.7 92 16 158/81 93 Nasal Cannula 2.0 09/28/16 08:40 102 144/76 09/28/16 08:00 93 Nasal Cannula 2.0 09/28/16 07:50 36.5 83 16 175/79 93 Nasal Cannula 2.0 09/28/16 07:35 93 20 93 Nasal Cannula 3.0 09/28/16 05:41 36.5 105 20 149/86 93 2.0 09/28/16 04:22 93 Nasal Cannula 2.0 09/28/16 03:38 36.6 85 18 139/79 94 Nasal Cannula 2.0 Humidified Oxygen 09/28/16 01:55 88 22 93 Nasal Cannula 3.0 09/28/16 00:00 93 Nasal Cannula 2.0 09/27/16 23:16 36.6 102 20 158/83 90 Nasal Cannula 3.0 Humidified Oxygen 09/27/16 20:00 93 Nasal Cannula 2.0 09/27/16 19:16 100 14 93 Nasal Cannula 3.0 09/27/16 19:04 36.8 100 18 157/92 91 Nasal Cannula 3.0 09/27/16 15:53 36.7 94 18 147/82 94 Nasal Cannula 3.0 09/27/16 15:20 Nasal Cannula 3.5 General Appearance: WELL-APPEARING, NO APPARENT DISTRESS Head: NORMOCEPHALIC, ATRAUMATIC Eyes: PERRLA, NO DISCHARGE, EOMI, SCLERAE NORMAL, CONJUNCTIVAE NORMAL ENT: NORMAL EAR EXAM, NORMAL NASAL EXAM, NORMAL MOUTH EXAM, other (Tim potty tII) Neck: TRACHEA MIDLINE, NO STRIDOR, SUPPLE Respiratory: other (decreased breath sounds bilaterally with expiratory rhonchi appreciated) Cardiovasular: REGULAR RATE/RHYTHM, NORMAL S1S2, NO M/G/R, NO MURMUR, NO GALLOP Abdomen: NON TENDER, NORMAL BOWEL SOUNDS, NO REBOUND, NO MASSES, NO GUARDING, NO ORGANOMEGALY Genitourinary - Female: EXTERNAL GENITALIA NORMAL Back: NORMAL INSPECTION, NO MIDLINE TENDERNESS, NO CVA TENDERNESS, NO PARAVERTEBRAL TTP Upper Extremities: NO EDEMA, NO DEFORMITY, NORMAL ROM Lower Extremities: NO DEFORMITY, NORMAL ROM Pulses: carotid (R) (2+), carotid (L), posterior tibial (R), posterior tibial ( L) (2+) Neuro: ALERT, ORIENTED x 3, NORMAL MOTOR EXAM, NORMAL SENSATION, NORMAL CEREBELLAR EXAM, NORMAL SPEECH Reflexes: biceps (R) (2+), bicpes (L) (2+) Babinski Testing: right (downgoing), left (downgoing) Psychiatric: NORMAL AFFECT, NO SUICIDAL IDEATION Diagnostics Diagnostic Radiology 1)CXR: (09/25/2016) bronchial wall thickening 2)CTA (09/25/2016) a.Negative PE b.Diffuse bilateral bronchiectasis with mucous plugging EKG 1) Sinus rhythm rate of 114 with intermittent PVCs Impression Assessment and Plan 70-year-old female with acute on chronic dyspnea on exertion and associated productive cough: #1 COPD/ACOS: Per her history the patient most likely has a progressive history of COPD associated with her second hand smoke exposure and history of 25 pack per day. This time I will continue with her steroids, antibiotics, chest physiotherapy Atrovent and introduce Xopenex and Symbicort at this time. Patient will need a more thorough workup in the pulmonary clinic. At that time we'll perform pulmonary function studies. #2 Productive Cough: Cough most likely associated with acute on chronic COPD flare with associated chronic rhinitis. We'll obtain nasal sinus films.
[2016-09-28] MEDS ORDERED: LIDODERM (LIDOCAINE) PATCH 5% TD ONE ×2 (15:28→16:03)
--- NOTE | 2016-09-28 17:33 | DIAGNOSTIC IMAGING REPORT ---
SINUS CT WITHOUT CONTRAST CLINICAL HISTORY: Chronic sinusitis. COMPARISON STUDY: None. Technique: Helical axial images of the sinuses were obtained without IV contrast. Coronal reformats were viewed. CT DOSE: 245.11 mGycm FINDINGS: Visualized portions of the intracranial contents are unremarkable on this unenhanced exam. Mastoid air cells are clear. There is no fluid within the middle ears. Major drainage pathways are patent with the sinuses. There is mild mucosal thickening of the sinuses. No air-fluid levels present. No bony destruction is present. The cribriform plate is intact. The ostiomeatal complexes are patent. There is mild S-shaped deviation of the nasal septum with minimal spur formation. IMPRESSION: 1. Mild mucosal thickening of the sinuses without evidence for acute sinusitis. Patent major drainage pathways. 3. Mild S-shaped deviation of the nasal septum. Electronically signed by: Wily Finnegan M.D. 09/28/2016 5:32 PM Dictated Date/Time: 09/28/2016 5:29 PM
[2016-09-28] MEDS: LEVALBUTEROL 1.25MG/0.5ML NEB INH SCH (20:17)
[2016-09-28] MEDS ORDERED: BUDESONIDE/FORMOTEROL FUMARATE 80/4.5 60 PUFFS/INHALER INH SCH (21:00)
[2016-09-28] MEDS ORDERED: LEVALBUTEROL 1.25MG/0.5ML NEB INH SCH (21:00)
[2016-09-28] MEDS: BUDESONIDE/FORMOTEROL FUMARATE 80/4.5 60 PUFFS/INHALER INH SCH (21:18)
[2016-09-28] MEDS: LORAZEPAM 0.5 MG TAB PO PRN (23:14)
[2016-09-29] VITALS (9 sets, daily range): BP systolic 141–169; BP diastolic 77–89; PULSE 92–112; TEMP 36.4–36.6; O2SAT 91–98
[2016-09-29] MEDS: IPRATROPIUM BROMIDE NEB SOLN 0.02% 2.5 ML VIAL INH SCH ×4 (02:18→19:50)
[2016-09-29] MEDS: LEVALBUTEROL 1.25MG/0.5ML NEB INH SCH ×4 (02:18→19:50)
[2016-09-29] MEDS: METHYLPREDNISOLONE IV 60 MG in SYRINGE 0 ML IV SCH ×3 (02:21→17:32)
[2016-09-29 07:11] LABS: HEMATOCRIT 44.1 % (37-47); MEAN CELL VOLUME 96.5 fL (80-100); MEAN CORPUSCULAR HEMOGLOBIN 31.5 pg (25-34); MEAN CORPUSCULAR HGB CONC 32.7 g/dl (32-36); MEAN PLATELET VOLUME 9.8 fL (7.4-10.4); PLATELET COUNT 194 K/uL (130-400); RED BLOOD COUNT 4.57 M/uL (4.2-5.4); WHITE BLOOD COUNT 8.83 K/uL (4.8-10.8)
[2016-09-29 07:40] LABS: BUN/CREATININE RATIO 20.3 (10-20); CREATININE 0.85 mg/dl (0.60-1.20); MAGNESIUM 2.8 mg/dl (1.8-2.4); POTASSIUM 4.3 mmol/L (3.5-5.1)
[2016-09-29] MEDS: BUDESONIDE/FORMOTEROL FUMARATE 80/4.5 60 PUFFS/INHALER INH SCH ×2 (07:43→20:38)
[2016-09-29] MEDS: GUAIFENESIN 600 MG TABCR PO SCH ×2 (07:43→20:39)
[2016-09-29] MEDS: ENOXAPARIN 40 MG/0.4 ML SYR SQ SCH ×2 (07:43→07:45)
[2016-09-29] MEDS: LIDODERM (LIDOCAINE) PATCH 5% TD SCH ×2 (07:44→07:46)
[2016-09-29] MEDS ORDERED: LIDODERM (LIDOCAINE) PATCH 5% TD SCH (09:00)
[2016-09-29] MEDS: LEVOFLOXACIN 750 MG TAB PO SCH (09:55)
--- NOTE | 2016-09-29 10:56 | Hospitalist Progress Note ---
Hospitalist Progress Note Date of Service Sep 29, 2016. (Lidna Scott PA-C) Subjective Pt evaluation today including: conversation w/ patient, physical exam, chart review, lab review, review of studies, review of inpatient medication list Voiding: no voiding problems Patient seen and evaluated. No acute events overnight. She is reporting cough is becoming more productive compared to previous days. Incentive Spirometry and Flutter valve appears to be added benefit. Feels to be slowly improving with less SOB at rest and less HUTSON but still remains present. HR remains in 90s and intermittently low 100s but improved since admission. She reports a H/O hypothyroidism (29 yrs) but reports function returned and was meds discontinued -- Also reports that she mostly had S/S of hyperthyroidism with medications - will obtain TSH Constitutional: No chills, No fever ENT: No nasal symptoms, No sore throat, No trouble swallowing Respiratory: + cough, + dyspnea at rest, + dyspnea on exertion, + shortness of breath, + sputum Cardiovascular: No chest pain Abdomen: No constipation, No diarrhea, No nausea, No pain, No vomiting Musculoskeletal: No calf pain, No swelling Female : No dysuria Neurologic: No vertigo (Linda Scott PA-C) Medications Current Inpatient Medications Medications (Trade) Dose Ordered Sig/Morgan Route Start Time Stop Time Status Last Admin Dose Admin Ioversol 125 ml 125 ml UD PRN IV 09/25/16 12:00 09/29/16 11:59 Methylprednisolone Sodium Succinate/ Syringe (Solu-Medrol IV/ Syringe) 0.96 ml @ 1.5 mls/min Q8H IV 09/25/16 18:00 10/25/16 17:59 09/29/16 09:55 1.5 MLS/MIN Ipratropium [place] (Atrovent 0.02% 0.5MG/2.5ML Neb) 0.5 mg Q6R INH 09/25/16 21:00 10/25/16 20:59 09/29/16 07:42 0.5 MG Levofloxacin (Levaquin Tab) 750 mg DAILY@11 PO 09/26/16 11:00 10/02/16 10:59 09/29/16 09:55 750 MG Miscellaneous (Iv Fluids Completed) 1 ea PRN PRN N/A 09/25/16 15:30 09/25/17 15:29 Menthol (Nice Ines) 1 ines PRN PRN PO 09/26/16 02:45 10/26/16 02:44 09/26/16 03:06 1 INES Lorazepam (Ativan Tab) 0.5 mg HS PRN PO 09/26/16 02:45 10/26/16 02:44 09/28/16 23:14 0.5 MG Guaifenesin (Mucinex Contr Rel Tab) 600 mg BID PO 09/26/16 09:00 10/26/16 08:59 09/29/16 07:43 600 MG Levalbuterol (Xopenex 1.25MG/ 0.5ML Neb) 1.25 mg Q6R INH 09/28/16 21:00 10/28/16 20:59 09/29/16 07:42 1.25 MG Budesonide/ Formoterol Fumarate (Symbicort 80/ 4.5 Inh) 2 puffs BID INH 09/28/16 21:00 10/28/16 20:59 09/29/16 07:43 2 PUFFS Lidocaine (Lidoderm Patch 5%) 1 patch QAM TD 09/29/16 09:00 10/29/16 08:59 Miscellaneous (Remove Lidoderm Patch) 1 ea DAILY@21 N/A 09/28/16 23:00 10/28/16 22:59 09/28/16 23:15 1 EA Enoxaparin Sodium (Lovenox Inj) 40 mg QAM SQ 09/29/16 09:00 10/29/16 08:59 09/29/16 07:45 40 MG (Linda Scott, SUMEET-C) Objective Vital Signs Date Time Temp Pulse Resp B/P Pulse Ox O2 Delivery O2 Flow Rate FiO2 09/29/16 07:45 Nasal Cannula 3.0 09/29/16 07:42 97 16 95 Nasal Cannula 4.0 09/29/16 07:27 36.4 97 20 144/83 95 Nasal Cannula 3.0 09/29/16 04:10 36.4 99 20 162/89 93 Nasal Cannula 4.0 09/29/16 04:00 Nasal Cannula 3.0 09/29/16 02:18 92 16 98 Nasal Cannula 4.0 09/29/16 00:00 93 Nasal Cannula 4.0 09/28/16 23:34 36.5 101 20 157/81 93 Nasal Cannula 4.0 09/28/16 20:17 109 16 95 Nasal Cannula 4.0 09/28/16 20:00 93 Nasal Cannula 4.0 09/28/16 19:50 36.7 95 20 160/73 93 Nasal Cannula 4.0 09/28/16 16:29 36.8 98 18 154/90 94 4.0 09/28/16 14:13 100 20 94 Nasal Cannula 4.0 09/28/16 12:00 Nasal Cannula 2.0 09/28/16 11:46 36.7 92 16 158/81 93 Nasal Cannula 2.0 (Linda Scott PA-C) Physical Exam General Appearance: WD/WN, no apparent distress Eyes: sclerae normal ENT: hearing grossly normal Neck: supple, no JVD, trachea midline Respiratory/Chest: no respiratory distress, no accessory muscle use, + rhonchi (bases bilat), + wheezing (intermittent inspiratory/expiratory wheezing with improvement) Cardiovascular: regular rate, rhythm, no gallop, no murmur Abdomen: normal bowel sounds, non tender, soft Extremities: non-tender, no pedal edema Neurologic/Psychiatric: alert, oriented x 3 Skin: normal color, warm/dry (Linda Scott, PA-C) Laboratory Results Last 24 Hours Test 09/29/16 06:50 09/29/16 10:45 White Blood Count 8.83 K/uL Red Blood Count 4.57 M/uL Hemoglobin 14.4 g/dL Hematocrit 44.1 % Mean Corpuscular Volume 96.5 fL Mean Corpuscular Hemoglobin 31.5 pg Mean Corpuscular Hemoglobin Concent 32.7 g/dl RDW Standard Deviation 46.1 fL RDW Coefficient of Variation 13.0 % Platelet Count 194 K/uL Mean Platelet Volume 9.8 fL Sodium Level 140 mmol/L Potassium Level 4.3 mmol/L Chloride Level 101 mmol/L Carbon Dioxide Level 35 mmol/L Anion Gap 4.0 mmol/L Blood Urea Nitrogen 17 mg/dl Creatinine 0.85 mg/dl Est Creatinine Clear Calc Drug Dose 52.8 ml/min Estimated GFR () 80.5 Estimated GFR (Non- 69.4 BUN/Creatinine Ratio 20.3 Random Glucose 177 mg/dl Calcium Level 9.0 mg/dl Magnesium Level 2.8 mg/dl (Linda Scott, PA-C) Assessment and Plan Acute Asthma Exacerbation with Hypoxia vs Mild COPD (Mild Emphysema on Imaging) : IMPROVING - Methylprednisolone 60 mg IV Q8H - Levaquin 750 mg po daily - DAY #5/7 - Atrovent and Xopenex nebulizer - Mucinex 600 mg BID - Continue incentive spirometry and flutter valve - Continue O2 therapy with wean per nursing protocol - maintain sats greater than or equal to 92% - Consult pulmonology - recommendations reviewed - will have pulmonary F/U as O/ P -- Questions COPD with chronic sinusitis DVT Prophylaxis: Lovenox 40 mg SC daily Code Status: FULL RESUSCITATION Disposition: - Hopeful D/C 1-2 days - Will need O/P Pulmonary F/U Discharge planning: home (Linda Scott, PA-C) i personally examined pt and verified all lowe points w A Tyler PAC feeling a ltitlte better in between coughing fits but having more coughing fits. bringing up mucous vitals noted lungs more clear - scattered mucous sounding rhonchi but clearing not consistent and no wheeze better air entry (presumed) COPD exacerbation vs severe bronchitis -abx, steroids, nebs, time -outpt PFTs -hopefully can start to wean o2 (Volodymyr Geiger D.O.)
[2016-09-29] MEDS: LORAZEPAM 0.5 MG TAB PO PRN (20:42)
[2016-09-30] VITALS (8 sets, daily range): BP systolic 147–163; BP diastolic 72–81; PULSE 83–108; TEMP 36.4–37; O2SAT 90–96
[2016-09-30] MEDS: IPRATROPIUM BROMIDE NEB SOLN 0.02% 2.5 ML VIAL INH SCH ×4 (02:36→19:51)
[2016-09-30] MEDS: LEVALBUTEROL 1.25MG/0.5ML NEB INH SCH ×4 (02:36→19:51)
[2016-09-30 07:03] LABS: HEMATOCRIT 45.1 % (37-47); MEAN CELL VOLUME 96.6 fL (80-100); MEAN CORPUSCULAR HEMOGLOBIN 31.3 pg (25-34); MEAN CORPUSCULAR HGB CONC 32.4 g/dl (32-36); PLATELET COUNT 204 K/uL (130-400); RED BLOOD COUNT 4.67 M/uL (4.2-5.4); WHITE BLOOD COUNT 8.85 K/uL (4.8-10.8)
[2016-09-30 07:20] LABS: BUN/CREATININE RATIO 18.4 (10-20); CALCIUM 9.1 mg/dl (8.5-10.1); CREATININE 0.89 mg/dl (0.60-1.20); MAGNESIUM 2.7 mg/dl (1.8-2.4); POTASSIUM 4.1 mmol/L (3.5-5.1)
[2016-09-30] MEDS: LIDODERM (LIDOCAINE) PATCH 5% TD SCH (09:00)
[2016-09-30] MEDS: BUDESONIDE/FORMOTEROL FUMARATE 80/4.5 60 PUFFS/INHALER INH SCH ×2 (09:05→20:43)
[2016-09-30] MEDS: METHYLPREDNISOLONE IV 60 MG in SYRINGE 0 ML IV SCH (09:05)
[2016-09-30] MEDS: ENOXAPARIN 40 MG/0.4 ML SYR SQ SCH (09:06)
[2016-09-30] MEDS: GUAIFENESIN 600 MG TABCR PO SCH ×2 (09:33→20:43)
--- NOTE | 2016-09-30 14:49 | Hospitalist Progress Note ---
Hospitalist Progress Note Date of Service Sep 30, 2016. (Linda Scott PA-C) Subjective Pt evaluation today including: conversation w/ patient, physical exam, chart review, lab review, review of inpatient medication list Voiding: no voiding problems Patient seen and evaluated. No acute events overnight. Cough continues to get progressively more productive. Denies shortness of breath at rest but continues have HUTSON. Verbalizes no other new complaints. Performed two-step shows the need for 2 L with rest and ambulation. Suspect underlying COPD - patient is slowly improving but suspect few more days to overcome this flare Constitutional: No chills, No fever Eyes: No worsening of vision ENT: No nasal symptoms, No trouble swallowing, No unusual epistaxis Respiratory: + cough, + dyspnea on exertion, + sputum, No dyspnea at rest Cardiovascular: No chest pain Abdomen: No constipation, No diarrhea, No nausea, No pain, No vomiting Musculoskeletal: No calf pain, No swelling Female : No dysuria (Linda Scott PA-C) Medications Current Inpatient Medications Medications (Trade) Dose Ordered Sig/Morgan Route Start Time Stop Time Status Last Admin Dose Admin Ipratropium [place] (Atrovent 0.02% 0.5MG/2.5ML Neb) 0.5 mg Q6R INH 09/25/16 21:00 10/25/16 20:59 09/30/16 14:19 0.5 MG Levofloxacin (Levaquin Tab) 750 mg DAILY@11 PO 09/26/16 11:00 10/02/16 10:59 09/29/16 09:55 750 MG Miscellaneous (Iv Fluids Completed) 1 ea PRN PRN N/A 09/25/16 15:30 09/25/17 15:29 Menthol (Nice Ines) 1 ines PRN PRN PO 09/26/16 02:45 10/26/16 02:44 09/26/16 03:06 1 INES Lorazepam (Ativan Tab) 0.5 mg HS PRN PO 09/26/16 02:45 10/26/16 02:44 09/29/16 20:42 0.5 MG Guaifenesin (Mucinex Contr Rel Tab) 600 mg BID PO 09/26/16 09:00 10/26/16 08:59 09/30/16 09:33 600 MG Levalbuterol (Xopenex 1.25MG/ 0.5ML Neb) 1.25 mg Q6R INH 09/28/16 21:00 10/28/16 20:59 09/30/16 14:19 1.25 MG Budesonide/ Formoterol Fumarate (Symbicort 80/ 4.5 Inh) 2 puffs BID INH 09/28/16 21:00 10/28/16 20:59 09/30/16 09:05 2 PUFFS Lidocaine (Lidoderm Patch 5%) 1 patch QAM TD 09/29/16 09:00 10/29/16 08:59 Miscellaneous (Remove Lidoderm Patch) 1 ea DAILY@21 N/A 09/28/16 23:00 10/28/16 22:59 09/28/16 23:15 1 EA Enoxaparin Sodium 40 mg 40 mg QAM SQ 09/29/16 09:00 10/29/16 08:59 09/30/16 09:06 40 MG Methylprednisolone Sodium Succinate/ Syringe (Solu-Medrol IV/ Syringe) 0.64 ml @ 1.5 mls/min Q12 IV 09/30/16 21:00 10/30/16 20:59 (Linda Scott PA-C) Objective Vital Signs Date Time Temp Pulse Resp B/P Pulse Ox O2 Delivery O2 Flow Rate FiO2 09/30/16 14:20 105 16 93 Nasal Cannula 2.0 09/30/16 08:00 Nasal Cannula 3.0 09/30/16 07:43 103 16 96 Nasal Cannula 3.0 09/30/16 07:11 36.4 92 18 163/81 93 Nasal Cannula 3.0 09/30/16 02:36 98 16 93 Nasal Cannula 3.0 09/30/16 00:01 Nasal Cannula 3.0 09/29/16 23:08 36.6 101 16 141/77 95 Nasal Cannula 3.0 09/29/16 19:50 98 16 93 Nasal Cannula 3.0 09/29/16 15:30 Nasal Cannula 3.0 09/29/16 14:57 36.6 112 20 169/82 91 Nasal Cannula 3.0 (Linda Scott PA-C) Physical Exam General Appearance: WD/WN, no apparent distress Eyes: sclerae normal ENT: hearing grossly normal Neck: supple, no JVD, trachea midline Respiratory/Chest: no respiratory distress, no accessory muscle use, + pertinent finding (scattered rhonchi bilaterally; improved airflow quality; no wheezing appreciated) Cardiovascular: regular rate, rhythm, no gallop, no murmur Abdomen: normal bowel sounds, non tender, soft Extremities: non-tender, no pedal edema Neurologic/Psychiatric: alert, oriented x 3 Skin: normal color, warm/dry (Linda Scott PA-C) Laboratory Results Last 24 Hours Test 09/29/16 14:50 09/30/16 06:20 Free Thyroxine 1.11 ng/dl White Blood Count 8.85 K/uL Red Blood Count 4.67 M/uL Hemoglobin 14.6 g/dL Hematocrit 45.1 % Mean Corpuscular Volume 96.6 fL Mean Corpuscular Hemoglobin 31.3 pg Mean Corpuscular Hemoglobin Concent 32.4 g/dl RDW Standard Deviation 46.3 fL RDW Coefficient of Variation 13.1 % Platelet Count 204 K/uL Mean Platelet Volume 10.0 fL Sodium Level 141 mmol/L Potassium Level 4.1 mmol/L Chloride Level 101 mmol/L Carbon Dioxide Level 34 mmol/L Anion Gap 6.0 mmol/L Blood Urea Nitrogen 16 mg/dl Creatinine 0.89 mg/dl Est Creatinine Clear Calc Drug Dose 50.4 ml/min Estimated GFR () 76.1 Estimated GFR (Non- 65.7 BUN/Creatinine Ratio 18.4 Random Glucose 194 mg/dl Calcium Level 9.1 mg/dl Magnesium Level 2.7 mg/dl (Linda Scott PA-C) Assessment and Plan Acute Asthma Exacerbation with Hypoxia vs COPD (Mild Emphysema on Imaging): IMPROVING - Methylprednisolone 40 mg IV Q12H - will need outpatient steroid taper - Levaquin 750 mg po daily - DAY #6/7 - Atrovent and Xopenex nebulizer - Mucinex 600 mg BID - Continue incentive spirometry and flutter valve - Continue O2 therapy with wean per nursing protocol - maintain sats greater than or equal to 92% - Consult pulmonology - recommendations reviewed - will have pulmonary F/U as O/ P DVT Prophylaxis: Lovenox 40 mg SC daily Code Status: FULL RESUSCITATION Disposition: - 2-step - qualifies for 2 L oxygen at rest and ambulation - case management following - Will need nebulizer prescription filled - Plan for DC tomorrow 0800 - this patient's ride can accommodate this Continued [facility] stay due to: multiple IV medications needed Discharge planning: home (Linda Scott PA-C) i personally examined pt and verified all lowe points w A Tyler PAC feeling better breathign easier, OK w going home on O2 - can't safely go until tomorrow though due to ride status/being able to get to pharmacy when ride would arrive, etc vitals noted, breathing unlabored, no pallor or icterus, pleasant nad COPD (presumed) exacerbation - wean steroids, conitnue nebs, ongoing O2, finish abx -anticipate home in AM otherwise as above (Volodymyr Geiger, D.O.)
--- NOTE | 2016-09-30 15:07 | Discharge Instructions ---
Discharge Instructions Date of Service Oct 01, 2016 Admission Reason for Admission: Hypoxemia, Reactive Airway Disease, Sob Discharge Discharge Diagnosis / Problem: Hypoxia from Asthma Exacerbation vs Undiagnosed COPD Discharge Goals Goal(s): Decrease discomfort, Improve function, Improve disease control Activity Recommendations Activity Limitations: as noted below Lifting Limitations: gradually increase as tolerated Exercise/Sports Limitations: gradually increase as tolerated May Resume Sexual Activity: when tolerated Shower/Bathe: no limitations . Instructions / Follow-Up Instructions / Follow-Up Acute Asthma Exacerbation vs COPD Exacerbation with Hypoxia: IMPROVING - Continue to use her incentive spirometry and flutter valve at home - this will help move secretions/mucus and help you expand her lungs - At this time your requiring oxygen of 2 L at rest and with ambulation - you may require this until this flare has resolved - You will be placed on a steroid taper as follows: -- Prednisone 60 mg daily x 3 days then 50 mg daily x 3 days then 40 mg daily x 3 days then 30 mg daily x 3 days then 20 mg daily x 3 days then 10 mg daily x 3 days - You will only require 1 more day of antibiotic therapy - a prescription will be provided for Levaquin 750 mg daily x 1 day (take today 10/01) - We will renew your nebulizer medication to use 4 times a day as needed and continue rescue inhaler 4 times a day as needed -- You recommend routinely using nebulizer at least in the first few days then can move to just as needed - You were started on Symbicort - this is a LONG-ACTING BRONCHODILATOR - THIS IS NOT A RESCUE INHALER -- Take 2 puffs twice a day - every day -- Rinse your mouth after using this inhaler as it does have an inhaled steroid component -- If you are having worsening shortness of breath USE YOUR RESCUE INHALER - this medication with not help worsening shortness of breath Follow-Up: - See Dr. Posey (Pulmonary - Lung Doctor) on September 11, 2016 at 1:30 PM - See your Family Doctor in 7-10 days Reasons to Return: - Return to the hospital if your shortness of breath increases and not relieved with inhalers/nebulizer Current Hospital Diet Patient's current hospital diet: AHA Diet (Heart Healthy) Discharge Diet Recommended Diet: AHA Diet (Heart Healthy) Pending Studies Studies pending at discharge: no Medical Emergencies . Who to Call and When: Medical Emergencies: If at any time you feel your situation is an emergency, please call 911 immediately. . Non-Emergent Contact Non-Emergency issues call your: Primary Care Provider Call Non-Emergent contact if: you have a fever, your pain is concerning you, you have any medication questions . . "Provider Documentation" section prepared by Linda Scott. VTE Core Measure Inpt VTE Proph given/why not?: Enoxaparin (Lovenox)SQ
[2016-09-30] MEDS: LEVOFLOXACIN 750 MG TAB PO SCH (15:25)
--- NOTE | 2016-09-30 16:13 | Pulmonology Progress Note ---
Pulmonary Progress Note Date of Service Sep 30, 2016. Attending Dr. Posey Subjective Patient is doing well today. She feels almost back to her baseline but continues mild dyspnea with exertion. Objective Patient doing well today sitting up in bed able to complete full sentences not using accessory muscles: Vital signs: Reviewed and stable on 2L nasal cannula Respiratory: Minimal wheezing with rhonchi appreciated bilaterally Cardiac: S1 and S2 distant heart sounds regular rate and rhythm Abdomen: Positive bowel sounds soft nontender Skin: No tissue breakdown appreciated CT sinuses: No signs of acute sinusitis or pathologic obstruction Assessment & Plan 70-year-old female with acute on chronic dyspnea on exertion and associated productive cough: #1 COPD/ACOS: I believe this patient most likely has advanced COPD. At this time we'll continue on her current treatment and titrate down to by mouth steroids tomorrow morning. We'll maintain her on 60 mg titrating down 10 mg every 3 days. She'll also need follow-up in the pulmonary clinic/[facility] within the 7-10 day window. At that time we will further discuss her COPD/shortness of breath workup and obtain pulmonary function tests. #2 Sinusitis: Sinusitis has apparently improved and sinus CT showed no signs of chronic obstruction and/or acute sinusitis. #3 Discharge: At this time I would discharge the patient on 2 L nasal cannula at rest and 3-4 L with ambulation and sleep. Patient will be followed up in the [facility] we will sign off at this time reconsult if any acute issues arise. Data Medications: Current Inpatient Medications Medications (Trade) Dose Ordered Sig/Morgan Route Start Time Stop Time Status Last Admin Dose Admin Ipratropium [place] (Atrovent 0.02% 0.5MG/2.5ML Neb) 0.5 mg Q6R INH 09/25/16 21:00 10/25/16 20:59 09/30/16 14:19 0.5 MG Levofloxacin (Levaquin Tab) 750 mg DAILY@11 PO 09/26/16 11:00 10/02/16 10:59 09/30/16 15:25 750 MG Miscellaneous (Iv Fluids Completed) 1 ea PRN PRN N/A 09/25/16 15:30 09/25/17 15:29 Menthol (Nice [place]) 1 sukh PRN PRN PO 09/26/16 02:45 10/26/16 02:44 09/26/16 03:06 1 SUKH Lorazepam (Ativan Tab) 0.5 mg HS PRN PO 09/26/16 02:45 10/26/16 02:44 09/29/16 20:42 0.5 MG Guaifenesin (Mucinex Contr Rel Tab) 600 mg BID PO 09/26/16 09:00 10/26/16 08:59 09/30/16 09:33 600 MG Levalbuterol (Xopenex 1.25MG/ 0.5ML Neb) 1.25 mg Q6R INH 09/28/16 21:00 10/28/16 20:59 09/30/16 14:19 1.25 MG Budesonide/ Formoterol Fumarate (Symbicort 80/ 4.5 Inh) 2 puffs BID INH 09/28/16 21:00 10/28/16 20:59 09/30/16 09:05 2 PUFFS Lidocaine (Lidoderm Patch 5%) 1 patch QAM TD 09/29/16 09:00 10/29/16 08:59 Miscellaneous (Remove Lidoderm Patch) 1 ea DAILY@21 N/A 09/28/16 23:00 10/28/16 22:59 09/28/16 23:15 1 EA Enoxaparin Sodium 40 mg 40 mg QAM SQ 09/29/16 09:00 10/29/16 08:59 09/30/16 09:06 40 MG Methylprednisolone Sodium Succinate/ Syringe (Solu-Medrol IV/ Syringe) 0.64 ml @ 1.5 mls/min Q12 IV 09/30/16 21:00 10/30/16 20:59 I & O: 24-Hour Column 09/30/16 08:00 Intake Total 1120 ml Output Total 500 ml Balance 620 ml Vital Signs: Date Time Temp Pulse Resp B/P Pulse Ox O2 Delivery O2 Flow Rate FiO2 09/30/16 15:27 37.0 83 18 163/72 90 Nasal Cannula 2.0 09/30/16 14:20 105 16 93 Nasal Cannula 2.0 09/30/16 08:00 Nasal Cannula 3.0 09/30/16 07:43 103 16 96 Nasal Cannula 3.0 09/30/16 07:11 36.4 92 18 163/81 93 Nasal Cannula 3.0 09/30/16 02:36 98 16 93 Nasal Cannula 3.0 09/30/16 00:01 Nasal Cannula 3.0 09/29/16 23:08 36.6 101 16 141/77 95 Nasal Cannula 3.0 09/29/16 19:50 98 16 93 Nasal Cannula 3.0 Laboratory Results: Last 24 Hours Test 09/30/16 06:20 White Blood Count 8.85 K/uL Red Blood Count 4.67 M/uL Hemoglobin 14.6 g/dL Hematocrit 45.1 % Mean Corpuscular Volume 96.6 fL Mean Corpuscular Hemoglobin 31.3 pg Mean Corpuscular Hemoglobin Concent 32.4 g/dl RDW Standard Deviation 46.3 fL RDW Coefficient of Variation 13.1 % Platelet Count 204 K/uL Mean Platelet Volume 10.0 fL Sodium Level 141 mmol/L Potassium Level 4.1 mmol/L Chloride Level 101 mmol/L Carbon Dioxide Level 34 mmol/L Anion Gap 6.0 mmol/L Blood Urea Nitrogen 16 mg/dl Creatinine 0.89 mg/dl Est Creatinine Clear Calc Drug Dose 50.4 ml/min Estimated GFR () 76.1 Estimated GFR (Non- 65.7 BUN/Creatinine Ratio 18.4 Random Glucose 194 mg/dl Calcium Level 9.1 mg/dl Magnesium Level 2.7 mg/dl
[2016-09-30] MEDS: LORAZEPAM 0.5 MG TAB PO PRN (20:43)
[2016-09-30] MEDS ORDERED: METHYLPREDNISOLONE IV 40 MG in SYRINGE 0 ML IV SCH (21:00)
[2016-10-01 02:25] VITALS: PULSE 100; O2SAT 91
[2016-10-01] MEDS: LEVALBUTEROL 1.25MG/0.5ML NEB INH SCH ×2 (02:25→07:09)
[2016-10-01] MEDS: IPRATROPIUM BROMIDE NEB SOLN 0.02% 2.5 ML VIAL INH SCH ×2 (02:25→07:09)
[2016-10-01] MEDS ORDERED: GFNSR600 PO (06:29)
[2016-10-01] MEDS ORDERED: SYMIN8045 INH (06:29)
[2016-10-01] MEDS ORDERED: LVQ750 PO (06:29)
[2016-10-01] MEDS ORDERED: XPNINS1255 INH (06:29)
[2016-10-01] MEDS ORDERED: PRD20 PO (06:29)
[2016-10-01 07:11] VITALS: PULSE 94; O2SAT 94
[2016-10-01 07:22] VITALS: BP 136/83; PULSE 103; TEMP 36.5; O2SAT 96
[2016-10-01] MEDS: GUAIFENESIN 600 MG TABCR PO SCH (07:51)
[2016-10-01] MEDS: BUDESONIDE/FORMOTEROL FUMARATE 80/4.5 60 PUFFS/INHALER INH SCH (07:51)
[2016-10-01] MEDS: ENOXAPARIN 40 MG/0.4 ML SYR SQ SCH (07:52)
[2016-10-01] MEDS: LIDODERM (LIDOCAINE) PATCH 5% TD SCH (07:52)
[2016-10-01 08:45] VITALS: BP 136/83; PULSE 103; TEMP 36.5; O2SAT 96
--- NOTE | 2016-10-01 12:54 | Discharge Summary ---
Discharge Summary Date of Service Oct 01, 2016. (Linda Scott PA-C) Discharge Summary Admission Date: Sep 25, 2016 at 15:07 Discharge Date: Oct 01, 2016 Discharge Disposition: Home Principal Diagnosis: Suspected COPD Exacerbation Problems/Secondary Diagnoses: Medical Problems: (1) Asthma (2) Hyperlipidemia Procedures: 1. CHEST ONE VIEW PORTABLE CLINICAL HISTORY: CHEST PAIN dyspnea COMPARISON STUDY: 04/27/2016 FINDINGS: The bones soft tissues and hemidiaphragms are normal. The cardiomediastinal silhouette is normal. The lungs are clear. The pulmonary vasculature is normal. IMPRESSION: Negative chest. 2. CT ANGIOGRAPHY OF THE CHEST, PULMONARY EMBOLUS PROTOCOL CLINICAL HISTORY: Cough and shortness of breath. COMPARISON STUDY: Chest radiograph September 25, 2016 and April 27, 2016. TECHNIQUE: Following IV administration of 101 mL of Optiray-320, helical axial images of the chest were obtained utilizing the pulmonary embolus protocol. Maximal intensity projections and sagittal and coronal reformats were viewed on an independent 3D workstation. IV contrast was administered without complication. CT DOSE: 396.53 mGy.cm FINDINGS: No pulmonary emboli are identified. There is no evidence of thoracic aortic dissection. The size of the heart is normal. There is no pericardial effusion. There is a small hiatal hernia. No pneumothorax or pleural effusion is present. There is mild emphysema. There is multifocal mucus plugging or mucoid impaction. There is mild diffuse bronchial wall thickening and mild bronchiectasis. No consolidation is identified. Bony thorax and upper abdomen are unremarkable. IMPRESSION: 1. No pulmonary emboli identified. 2. Multifocal mucus plugging and bronchial wall thickening throughout the lungs. No consolidation. 3. Mild emphysema. 3. SINUS CT WITHOUT CONTRAST CLINICAL HISTORY: Chronic sinusitis. COMPARISON STUDY: None. Technique: Helical axial images of the sinuses were obtained without IV contrast. Coronal reformats were viewed. CT DOSE: 245.11 mGycm FINDINGS: Visualized portions of the intracranial contents are unremarkable on this unenhanced exam. Mastoid air cells are clear. There is no fluid within the middle ears. Major drainage pathways are patent with the sinuses. There is mild mucosal thickening of the sinuses. No air-fluid levels present. No bony destruction is present. The cribriform plate is intact. The ostiomeatal complexes are patent. There is mild S-shaped deviation of the nasal septum with minimal spur formation. IMPRESSION: 1. Mild mucosal thickening of the sinuses without evidence for acute sinusitis. 2. Patent major drainage pathways. 3. Mild S-shaped deviation of the nasal septum. Consultations: 1. Pulmonology - Dr. Posey (Linda Scott, PA-C) Medication Reconciliation New Medications: Budesonide/Formoterol Fumarate (Symbicort 80-4.5 Mcg/Act) 60 Puffs/Inhaler Aero 2 PUFFS INH BID for 30 Days Guaifenesin Ext Rel (Mucinex Ext Rel) 600 Mg Tabcr 600 MG PO BID for 7 Days Levalbuterol (Levalbuterol) 1.25 Mg/0.5 Ml Nebu 1.25 MG INH Q6H for 15 Days Levofloxacin (Levofloxacin) 750 Mg Tab 750 MG PO DAILY@11 for 1 Day, TAB Take today 10/01/16 Prednisone (Prednisone) 20 Mg Tab 60 MG PO DAILY, #32 TAB Take 60 mg daily x 3 days, 50 mg daily x 3 days, 40 mg daily x 3 days, 30 mg daily x 3 days, 20 mg daily x 3 days, 10 mg daily x 3 days Continued Medications: Ascorbic Acid (Vitamin C) 500 Mg Tab 500 MG PO DAILY Aspirin (Aspirin Ec) 81 Mg Tab 81 MG PO Q2D Atorvastatin (Lipitor) 20 Mg Tab 20 MG PO DAILY Calcium Carbonate-Vitamin D (Calcium + D3 600-200 mg-Unit) 1 Tab Tab 2 TAB PO DAILY Cholecalciferol (Vitamin D3) 1,000 Unit Tab 2 TAB PO DAILY Cinnamon (Cinnamon) 500 Mg Tab 1000 MG PO DAILY Coenzyme Q10 (Ubidecarenone) (Co Q 10) 100 Mg Cap 100 MG PO DAILY Cyanocobalamin (Vitamin B-12) 1,000 Mcg Tab 1000 MCG PO DAILY Magnesium Oxide (Magnesium) 250 Mg Tab 250 MG PO DAILY Misc Natural Products (Osteo Bi-Flex Triple Stre) 1 Tab Tab 2 TABS PO DAILY Potassium (Potassium) 99 Mg Tab 99 MG PO DAILY Discharge Exam REVIEW OF SYSTEMS: General/Constitutional: Denies fever/chills, fatigue, weakness ENT: Denies visual changes, nasal drainage, hearing loss, sore throat, trouble swallowing Cardiovascular: Denies chest pain, palpitations, edema Respiratory: + Cough, Intermittent Sputum, HUTSON; Denies orthopnea GI: Denies nausea, vomiting, abdominal pain, constipation, diarrhea, melena/ hematochezia : Denies dysuria, frequency, hematuria Musculoskeletal: Denies joint/muscle aches, weakness, swelling Neurologic: Denies dizziness/lightheadedness, numbness/tingling, weakness Psychiatric: Deferred Endocrine: Deferred Hematologic/Lymphatic: Denies bleeding/clotting abnormalities Skin: Denies rash, itch, new skin changes, easy bruising Allergy/Immunologic: Deferred HISTORY AND PHYSICAL: General Appearance: WDWN in NAD who is A&O x 3 HEENT: Head is normocephalic/atraumatic; EOMI; PERRLA; Hearing grossly intact; Mucous membranes moist; Pharynx negative for exudate/lesions Neck: Supple; Trachea midline; Neg JVD; Neg lymphadenopathy Heart: RRR with no M/G/R Lungs: Coarse breath sounds scattered throughout; Respirations unlabored; Neg accessory muscle use; Neg wheezing Abdomen: Soft, non-tender, non-distended; Positive BS x 4 quadrants; Neg organomegaly Extremities: Capillary refill < 2 seconds; Neg cyanosis or edema Neurological: Speech clear; Gross motor/sensory function intact; Neg focal neurologic deficits Psychiatric: Appropriate mood/affect Skin: Normal Color; Warm/Dry; Neg rashes, ecchymosis, lacerations/ulcerations (Linda Scott, KAYLEY) Hospital Course ADMISSION: Pt is 70 yr old woman with a PMH significant for HLD admitted for eval .of worsening HUTSON, wheezing and dry cough. Symptoms started about 4 to 5 weeks ago. Pt was seen at [facility] by and started on Inhalers and steroids. Since her symptoms persisted she was seen by her PCP about 2 weeks ago and started on Nebs and oral steroids. Since her symptoms did not improve the pt came to ER for further eval. Pt was given oxygen, nebs, IV solumedrol and since her SOB persisted the pt was admitted for obs. Pt has no prior hx of B.asthma, COPD, Pul.fibrosis. She denies any cardiac hx in the past. HOSPITAL COURSE: Ms. Lopez was admitted for probable COPD exacerbation. Patient reports PMHx of asthma and significant past tobacco use but no official COPD diagnosis. Patient reported failure of outpatient treatment of steroids. Also reported using nebulizer QID and albuterol inhaler QID without relief. Upon arrival to the hospital, patient was noted to be hypoxic on room air. Throughout admission she has been requiring 2-4 L with inability to completely wean. She was treated with IV steroids and prescribed a long po taper upon discharge. She was covered by antibiotic therapy to complete a seven-day course. She was treated with Xopenex and Atrovent nebulizers and given a prescription for Xopenex at discharge. Continued frequent incentive spirometry and flutter valve. During her admission her cough was initially nonproductive but has become more productive with treatment. She was initiated on Symbicort BID. Due to suspicion for COPD and resistant to wean, pulmonology was consulted. Plan for pulmonology follow-up for monitoring of current exacerbation and to perform official PFTs for official diagnosing. 2 step performed which revealed 86% saturations at rest on room air with decreasing saturations of 84-86% with ambulation. Patient qualified for home oxygen use of 2 L NC with rest and exertion. Patient is optimal for discharge home with outpatient pulmonology follow-up. Total Time Spent: Greater than 30 minutes This includes examination of the patient, discharge planning, medication reconciliation, and communication with other providers. (Linda Scott, PA-C) i personally examined pt and verified all lowe points w A Tyler PAC feeling better wants to go home, extensively tried to explain overall treatment plan, follow up, and secondary prevention even with simple measures like handwashing vitals noted, breathing unlabored still on O2 but otherwise no distress (presumed) COPD exacerbation with ongoing hypoxic respiratory failure -overall "bronchitis" picture improving, O2 requirements continue, strongly suspect underlying at least moderate COPD (~25pk year personal hx, countless second hand smoke exposure) -stable for home on O2 (hopefully slowly wean) - interestingly she recalls today that she has a pulse ox at home from a prior hospital discharge a few years ago -finish meds as above -outpt PCP and pulmonary follow up Total Time Spent: Greater than 30 minutes (Volodymyr Geiger D.Loco) Discharge Instructions Please refer to the electronic Patient Visit Report (Discharge Instructions) for additional information. (Linda Scott, PA-C) Additional Copies To Xiang Mitchell M.D.
== END 2016-10-01 10:30 | disposition home or self-care (01) | DRG 191 ==
LOC: ENRESERVTM → ENRESERVDT → C.EDB 08:42 → C.2T 15:07 → EDBEDREQ 15:13 → C.MED 09-28 05:26
PROVIDERS: ADMIT Internal Medicine; ATTEND Family Medicine
DX: J44.1 Chronic obstructive pulmonary disease with (acute) exacerbation (principal); J45.901 Unspecified asthma with (acute) exacerbation; J31.0 Chronic rhinitis; K44.9 Diaphragmatic hernia without obstruction or gangrene; E78.00 Pure hypercholesterolemia, unspecified; Z87.891 Personal history of nicotine dependence; Z79.82 Long term (current) use of aspirin; R09.02 Hypoxemia; J44.0 Chronic obstructive pulmonary disease with (acute) lower respiratory infection; J40 Bronchitis, not specified as acute or chronic; Z99.81 Dependence on supplemental oxygen

== ENCOUNTER → 2016-11-12 | Outpatient (CLI) | payer BC ==
[~2016-11-12] MED LIST changes: +ASCO500T3 PO; +CALC-388 PO; +CHOL1000 PO; -CHOL100010 PO; -CINN1CAP2 PO; +CINN500T PO; -COEN100C11 PO; +COEN1CAP17 PO; +CYAN10005 PO; -ECHINACEA PO; -ESTR0.3T PO; +GFNSR600 PO; +LVQ750 PO; +MAGN250T22 PO; -MISCTAB78 PO; +MISCTAB88 PO; -OMEGCAP2 PO; +POTA99TA PO; -POTASSIUM PO; +PRD20 PO; +SYMIN8045 INH; +XPNINS1255 INH
--- NOTE | 2016-11-12 17:30 | ECHOCARDIOGRAM REPORT ---
*NOTICE TO RECEIVING DEMOCRAT AGENCY This information is strictly Confidential and protected under [place] law. [place] law prohibits you from making any further disclosure of this information unless further disclosure is expressly permitted by the written consent of the person to whom it pertains or is authorized by law. A general authorization for the release of medical or other information is not sufficient for this purpose. Hospital accepts no responsibility if the information is made available to any other person, INCLUDING THE PATIENT. Interpretation Summary * Name: ZAHIRA HUYNH Study Date: 11/12/2016 01:46 PM BP: 139/68 mmHg * Patient Location: [facility] HR: 81 * : 1945 (M/d/yyyy) Gender: Female Height: 60 in * Age: 70 yrs Ethnicity: CA Weight: 148 lb * Ordering Physician: Trell Posey * Referring Physician: Trell Posey * Performed By: Tanya Farley * * Reason For Study: HUTSON, HYPOXIA * BSA: 1.6 m2 * -- Conclusions -- * Left ventricular systolic function is normal. * Grade I diastolic dysfunction, (abnormal relaxation pattern). * The right ventricle is borderline dilated. * The right ventricular systolic function is normal as assessed by tricuspid annular plane systolic excursion (TAPSE) (normal >1.5 cm). * There is moderate right ventricular hypertrophy. Procedure Details * A complete two-dimensional transthoracic echocardiogram was performed (2D, M-mode, Doppler and color flow Doppler). * There were technical limitations due to patient'sPoor acoustic windows secondary to severe lung disease. Left Ventricle * The left ventricle is normal in size. * There is normal left ventricular wall thickness. * Left ventricular systolic function is normal. * Ejection Fraction = 55-60%. * Grade I diastolic dysfunction, (abnormal relaxation pattern). * The left ventricular wall motion is normal. Right Ventricle * The right ventricle is borderline dilated. * There is moderate right ventricular hypertrophy. * The right ventricular systolic function is normal as assessed by tricuspid annular plane systolic excursion (TAPSE) (normal >1.5 cm). Atria * The left atrial size is normal. * Right atrial size is normal. Mitral Valve * The mitral valve leaflets appear thickened, but open well. * There is no mitral regurgitation noted. Tricuspid Valve * The tricuspid valve is not well visualized, but is grossly normal. * There is trace tricuspid regurgitation. Aortic Valve * The aortic valve is not well visualized. * No hemodynamically significant valvular aortic stenosis. * There is no significant aortic regurgitation. Pericardium/Pleural * There is no pericardial effusion. Great Vessels * Normal inferior vena cava size and collapsability with sniff indicates a normal right atrial pressure of 3 mmHg MMode 2D Measurements and Calculations IVSd 0.88 cm IVSs 1.3 cm LVIDd 4.0 cm LVIDs 2.5 cm LVPWd 0.92 cm LVPWs 1.4 cm IVS/LVPW 0.97 FS 38.3 % EDV(Teich) 69.0 ml ESV(Teich) 21.3 ml EF(Teich) 69.1 % EDV(cubed) 62.8 ml ESV(cubed) 14.8 ml EF(cubed) 76.5 % % IVS thick 45.5 % % LVPW thick 57.1 % LV mass(C)d 108.6 grams LV mass(C)dI 66.1 grams/m\S\2 LV mass(C)s 103.8 grams LV mass(C)sI 63.2 grams/m\S\2 SV(Teich) 47.7 ml SI(Teich) 29.0 ml/m\S\2 SV(cubed) 48.0 ml SI(cubed) 29.2 ml/m\S\2 ACS 1.6 cm asc Aorta Diam 2.8 cm LVOT diam 2.1 cm LVOT area 3.4 cm\S\2 LVAd ap4 25.5 cm\S\2 LVLd ap4 8.1 cm EDV(MOD-sp4) 66.3 ml EDV(sp4-el) 68.3 ml LVAs ap4 12.7 cm\S\2 LVLs ap4 6.6 cm ESV(MOD-sp4) 20.4 ml ESV(sp4-el) 20.8 ml EF(MOD-sp4) 69.3 % EF(sp4-el) 69.5 % LVAd ap2 22.4 cm\S\2 LVLd ap2 7.8 cm EDV(MOD-sp2) 52.9 ml EDV(sp2-el) 54.8 ml LVAs ap2 10.7 cm\S\2 LVLs ap2 5.6 cm ESV(MOD-sp2) 16.4 ml ESV(sp2-el) 17.2 ml EF(MOD-sp2) 69.0 % EF(sp2-el) 68.6 % LVLd %diff -4.11 % EDV(MOD-bp) 59.4 ml LVLs %diff -17.77 % ESV(MOD-bp) 19.6 ml EF(MOD-bp) 67.0 % SV(MOD-sp4) 45.9 ml SI(MOD-sp4) 27.9 ml/m\S\2 SV(MOD-sp2) 36.5 ml SI(MOD-sp2) 22.2 ml/m\S\2 SV(MOD-bp) 39.8 ml SI(MOD-bp) 24.3 ml/m\S\2 SV(sp4-el) 47.5 ml SI(sp4-el) 28.9 ml/m\S\2 SV(sp2-el) 37.6 ml SI(sp2-el) 22.9 ml/m\S\2 Doppler Measurements and Calculations MV E max chelly 49.8 cm/sec MV A max chelly 73.6 cm/sec MV E/A 0.68 MV P1/2t max chelly 50.0 cm/sec MV P1/2t 95.5 msec MVA(P1/2t) 2.3 cm\S\2 MV dec slope 153.5 cm/sec\S\2 MV dec time 0.38 sec Ao V2 max 93.6 cm/sec Ao max PG 3.5 mmHg Ao max PG (full) -0.21 mmHg MAYELIN(V,A) 3.5 cm\S\2 MAYELIN(V,D) 3.5 cm\S\2 LV V1 max PG 3.7 mmHg LV V1 max 96.4 cm/sec PA V2 max 85.0 cm/sec PA max PG 2.9 mmHg
--- NOTE | 2016-11-13 17:36 | PULMONARY FUNCTION TEST ---
SPIROMETRY: Within normal limits. LUNG VOLUMES: Mildly increased FRC, suggesting minimal obstructive ventilatory disease. DIFFUSION CAPACITY: Mild decrease in diffusion capacity, but alveolar volumes. INTERPRETATION: Mild obstructive ventilatory disease.
== END | disposition home or self-care (01) ==
LOC: C.RC 12:36
PROVIDERS: ATTEND Internal Medicine Critical Care Medicine
DX: R06.09 Other forms of dyspnea (principal); R09.02 Hypoxemia

== ENCOUNTER → 2016-11-16 | Outpatient (CLI) | payer BC ==
--- NOTE | 2016-11-17 07:56 | MAMMOGRAPHY REPORT ---
BILATERAL DIGITAL SCREENING MAMMOGRAM WITH CAD: 11/16/2016 CLINICAL HISTORY: Routine screening. Patient has no complaints. TECHNIQUE: Bilateral CC and MLO views were obtained. Current study was also evaluated with a Comput er Aided Detection (CAD) system. COMPARISON: Comparison is made to exams dated: 11/12/2015 mammogram, 11/08/2014 mammogram, 09/13/2013 mammogram, 09/12/2012 mammogram, 09/10/2011 mammogram, and 09/08/2010 mammogram - [facility]. BREAST COMPOSITION: There are scattered areas of fibroglandular density in both breasts. FINDINGS: There are scattered benign-appearing microcalcifications bilaterally. Stable asymmetries in the left upper outer quadrant. No suspicious mass, architectural distortion or cluster of new, s uspicious microcalcifications is seen. IMPRESSION: ACR BI-RADS CATEGORY 2: BENIGN There is no mammographic evidence of malignancy. A 1 year screening mammogram is recommended. The p atient will receive written notification of the results. Approximately 10% of breast cancers are not detected with mammography. A negative mammographic repor t should not delay biopsy if a clinically suggestive mass is present. Alis Chaparro M.D. ay/:11/16/2016 16:54:21 Broke Man: Tessie STRICKLAND(Christine)(Yadira)(BD), [facility] letter sent: Normal 1/2 BI-RADS Code: ACR BI-RADS Category 2: Benign
== END | disposition home or self-care (01) ==
LOC: C.MAMM 13:15
PROVIDERS: ATTEND Family Medicine
DX: Z12.31 Encounter for screening mammogram for malignant neoplasm of breast (principal)

== ENCOUNTER → 2016-12-23 | Outpatient (CLI) | payer BC ==
[~2016-12-23] MED LIST changes: +OPTIRAY 320 IV PRN
--- NOTE | 2016-12-23 09:42 | DIAGNOSTIC IMAGING REPORT ---
CHEST CT WITH CONTRAST CT DOSE: 555.61 mGy.cm HISTORY: Dyspnea R06.09 Dyspnea on [id number] [id number] Mucus plugging of TECHNIQUE: Multiaxial CT images of the chest were performed following the intravenous administration of contrast. COMPARISON: 09/25/2016 FINDINGS: Improved exam. Lungs are considered clear. Bronchial wall thickening and mucous plugging has considerably diminished and/or nearly resolved. There is no significant hilar or mediastinal adenopathy. Mild fatty infiltration of liver is present. IMPRESSION: Improved exam with the lungs now considered clear. Peribronchial thickening and mucous plugging has essentially resolved. Electronically signed by: Frank Rocha M.D. 12/23/2016 9:41 AM Dictated Date/Time: 12/23/2016 9:27 AM
== END | disposition home or self-care (01) ==
LOC: C.CTS 09:08
PROVIDERS: ATTEND Physician Assistant
DX: J98.09 Other diseases of bronchus, not elsewhere classified (principal); R06.09 Other forms of dyspnea; R09.02 Hypoxemia

== ENCOUNTER → 2017-10-01 | Outpatient (CLI) | payer BC ==
[~2017-10-01] MED LIST changes: -OPTIRAY 320 IV PRN
--- NOTE | 2017-10-01 13:37 | DIAGNOSTIC IMAGING REPORT ---
KUB CLINICAL HISTORY: 71 years-old Female presenting with NEPHROLITHIASIS. TECHNIQUE: Single supine view of the abdomen was obtained. COMPARISON: and CT from 01/26/2014. FINDINGS: Nonobstructive bowel gas pattern. No gross pneumoperitoneum. Calcification again projects over the right kidney consistent with right renal calculus. No additional radiographically evident renal or ureteral calculus. Stable distribution of pelvic phleboliths. Surgical clips noted in the right lower quadrant, unchanged. Osseous structures normal. Lung bases clear. IMPRESSION: 1. Right nephrolithiasis, unchanged from prior. No radiographic evidence of ureteral calculi. Electronically signed by: Ruben Mcdonald M.D. 10/01/2017 1:36 PM Dictated Date/Time: 10/01/2017 1:34 PM
== END | disposition home or self-care (01) ==
LOC: C.RADPV 13:21
PROVIDERS: ATTEND Urology
DX: N20.0 Calculus of kidney (principal)